=== PATIENT | female | born 1940 | race Caucasian/White ===

== ENCOUNTER → 2016-08-01 | Outpatient (CLI) | payer OTHER ==
[~2016-08-01] MED LIST: ASPEC81 PO; CHOL100010 PO; DEXT1SYP PO; INSUINJ13 SQ; LISI-725 PO; METO25TA56 PO; NVLGI7030 SC; PRAV40TA2 PO; TRIA37.5 PO; TRIA75TA53 PO
[2016-08-01 13:28] LABS: ESTIMATED AVERAGE GLUCOSE 160 mg/dl; HA1C FLAG Normal (Normal)
[2016-08-01 13:52] LABS: BLOOD UREA NITROGEN 26 mg/dl (7-18); BUN/CREATININE RATIO 19.7 (10-20); CALCIUM 9.2 mg/dl (8.5-10.1); CARBON DIOXIDE 25 mmol/L (21-32); CHLORIDE 107 mmol/L (98-107); GLUCOSE 106 mg/dl (70-99); POTASSIUM 3.9 mmol/L (3.5-5.1); SODIUM 143 mmol/L (136-145)
[2016-08-01 13:56] LABS: CHOLESTEROL 152 mg/dl (0-200); CHOLESTEROL/HDL RATIO 3.5; HDL CHOLESTEROL 43 mg/dl; TRIGLYCERIDES 152 mg/dl (0-150); VERY LOW DENSITY LIPOPROT CALC 30 mg/dl
== END | disposition home or self-care (01) ==
LOC: C.LABSPEC 12:07
PROVIDERS: ATTEND Internal Medicine
DX: Z00.00 Encounter for general adult medical examination without abnormal findings (principal); E11.65 Type 2 diabetes mellitus with hyperglycemia; I10 Essential (primary) hypertension; E78.5 Hyperlipidemia, unspecified

== ENCOUNTER → 2016-09-11 | Outpatient (CLI) | payer OTHER ==
[2016-09-11 12:54] LABS: BASO % 0.1 %; BASO ABS # 0.01 K/uL (0-0.2); COMPLETE YES; EOS % 0.7 %; HEMATOCRIT 40.2 % (37-47); IG% 0.2 %; LYMPH % 23.3 %; LYMPH ABS # 2.85 K/uL (1.2-3.4); MEAN CELL VOLUME 88.7 fL (80-100); MEAN CORPUSCULAR HGB CONC 31.6 g/dl (32-36); MONO % 6.8 %; NEUT % 68.9 %; PLATELET COUNT 352 K/uL (130-400); RED BLOOD COUNT 4.53 M/uL (4.2-5.4); WHITE BLOOD COUNT 12.25 K/uL (4.8-10.8)
[2016-09-11 13:24] LABS: BLOOD UREA NITROGEN 21 mg/dl (7-18); BUN/CREATININE RATIO 14.9 (10-20); CARBON DIOXIDE 23 mmol/L (21-32); CHLORIDE 106 mmol/L (98-107); GLUCOSE 131 mg/dl (70-99); MAGNESIUM 2.2 mg/dl (1.8-2.4); POTASSIUM 3.8 mmol/L (3.5-5.1); SODIUM 141 mmol/L (136-145)
[2016-09-11 13:33] LABS: CALCIUM 9.6 mg/dl (8.5-10.1)
== END | disposition home or self-care (01) ==
LOC: C.LABSPEC 12:19
PROVIDERS: ATTEND Internal Medicine
DX: R00.2 Palpitations (principal); R00.0 Tachycardia, unspecified

== ENCOUNTER → 2016-09-14 | Outpatient (CLI) | payer OTHER ==
--- NOTE | 2016-09-14 15:41 | ECHOCARDIOGRAM REPORT ---
*NOTICE TO RECEIVING [employer] This information is strictly Confidential and protected under [place] law. [place] law prohibits you from making any further disclosure of this information unless further disclosure is expressly permitted by the written consent of the person to whom it pertains or is authorized by law. A general authorization for the release of medical or other information is not sufficient for this purpose. Hospital accepts no responsibility if the information is made available to any other person, INCLUDING THE PATIENT. Interpretation Summary * Conclusions -- * 1. Normal left ventricular size and systolic function. EF 65-70%. No regional wall motion abnormalities. No left ventricular hypertrophy. Type 1 diastolic dysfunction. * 2. No significant valvular abnormalities visualized. * 3. Normal estimated right ventricular systolic pressure; 26 mmHg. * 4. No prior study available for comparison. Procedure Details * A complete two-dimensional transthoracic echocardiogram was performed (2D, M-mode, Doppler and color flow Doppler). Left Ventricle * Normal left ventricular size and systolic function. EF 65-70%. No regional wall motion abnormalities. No left ventricular hypertrophy. Type 1 diastolic dysfunction. Right Ventricle * The right ventricle is not well visualized. * The right ventricle is grossly normal size. * The right ventricular systolic function is normal as assessed by tricuspid annular plane systolic excursion (TAPSE) (normal >1.5 cm). * The right ventricular systolic function is normal. Atria * The left atrial size is normal. * Right atrial size is normal. * There is no evidence of atrial septal defect, but resolution does not allow assessment for a patent foramen ovale. Mitral Valve * There is moderate mitral annular calcification. * There is no mitral valve stenosis. * Significant mitral regurgitation is absent. Tricuspid Valve * The tricuspid valve is not well visualized, but is grossly normal. * There is no tricuspid stenosis. * There is trace tricuspid regurgitation. Aortic Valve * The aortic valve is trileaflet. * No hemodynamically significant valvular aortic stenosis. * No aortic regurgitation is present. Pulmonic Valve * The pulmonary valve is inadequately visualized, but the Doppler data is adequate for interpretation. * There is no pulmonic valvular stenosis. * There is no significant pulmonary regurgitation. Great Vessels * The aortic root is normal size. * Ascending aorta of normal dimension * Aortic arch of normal dimension. Pericardium/Pleural * There is no pericardial effusion. Great Vessels * Normal inferior vena cava size and collapsability with sniff indicates a normal right atrial pressure of 3 mmHg MMode 2D Measurements and Calculations IVSd 0.88 cm LVIDd 4.2 cm LVIDs 2.5 cm LVPWd 0.87 cm IVS/LVPW 1.0 FS 39.4 % EDV(Teich) 78.4 ml ESV(Teich) 23.3 ml EF(Teich) 70.3 % EDV(cubed) 73.9 ml ESV(cubed) 16.4 ml EF(cubed) 77.8 % LV mass(C)d 114.0 grams LV mass(C)dI 62.7 grams/m\S\2 SV(Teich) 55.1 ml SI(Teich) 30.3 ml/m\S\2 SV(cubed) 57.4 ml SI(cubed) 31.6 ml/m\S\2 Ao root diam 3.0 cm Ao root area 7.1 cm\S\2 ACS 1.8 cm LA dimension 3.0 cm asc Aorta Diam 2.9 cm LA/Ao 10 LVOT diam 2.0 cm LVOT area 3.0 cm\S\2 LVAd ap4 18.4 cm\S\2 LVLd ap4 6.8 cm EDV(MOD-sp4) 42.9 ml EDV(sp4-el) 42.0 ml LVAs ap4 8.8 cm\S\2 LVLs ap4 5.5 cm ESV(MOD-sp4) 12.5 ml ESV(sp4-el) 12.0 ml EF(MOD-sp4) 70.9 % EF(sp4-el) 71.5 % LVAd ap2 20.3 cm\S\2 LVLd ap2 6.8 cm EDV(MOD-sp2) 52.1 ml EDV(sp2-el) 51.7 ml LVAs ap2 10.5 cm\S\2 LVLs ap2 5.8 cm ESV(MOD-sp2) 16.7 ml ESV(sp2-el) 16.1 ml EF(MOD-sp2) 67.9 % EF(sp2-el) 68.8 % LVLd %diff -0.49 % EDV(MOD-bp) 47.5 ml LVLs %diff 5.1 % ESV(MOD-bp) 15.0 ml EF(MOD-bp) 68.5 % SV(MOD-sp4) 30.4 ml SI(MOD-sp4) 16.7 ml/m\S\2 SV(MOD-sp2) 35.4 ml SI(MOD-sp2) 19.5 ml/m\S\2 SV(MOD-bp) 32.5 ml SI(MOD-bp) 17.9 ml/m\S\2 SV(sp4-el) 30.0 ml SI(sp4-el) 16.5 ml/m\S\2 SV(sp2-el) 35.5 ml SI(sp2-el) 19.5 ml/m\S\2 Doppler Measurements and Calculations MV E max dmitry 96.6 cm/sec MV A max dmitry 108.7 cm/sec MV E/A 0.89 MV dec time 0.23 sec Ao V2 max 132.0 cm/sec Ao max PG 7.0 mmHg Ao max PG (full) 1.3 mmHg MEME(V,A) 2.8 cm\S\2 MEME(V,D) 2.8 cm\S\2 LV V1 max PG 5.7 mmHg LV V1 max 119.5 cm/sec TV E max dmitry 38.8 cm/sec PA V2 max 88.3 cm/sec PA max PG 3.1 mmHg PA acc slope 444.2 cm/sec\S\2 PA acc time 0.15 sec PI end-d dmitry 87.1 cm/sec TR max dmitry 239.8 cm/sec RVSP(TR) 26.0 mmHg RAP systole 3.0 mmHg PA pr(Accel) 13.4 mmHg
== END | disposition home or self-care (01) ==
LOC: C.CPL 13:07
PROVIDERS: ATTEND Internal Medicine
DX: R00.2 Palpitations (principal); R00.0 Tachycardia, unspecified

== ENCOUNTER 2016-12-17 13:46 | Emergency (ER) | payer OTHER ==
[~2016-12-17] VITALS: Ht 157.5 cm; Wt 82.3 kg
[~2016-12-17 13:46] MED LIST changes: -DEXT1SYP PO; -METO25TA56 PO; -TRIA37.5 PO
[2016-12-17 13:57] VITALS: TEMP 36.6; Ht 157.5 cm; Wt 82.3 kg
[2016-12-17] MEDS ORDERED: SODIUM CHLORIDE 0.9% 1000ML 1,000 ML IV STA (14:12)
--- NOTE | 2016-12-17 14:18 | EMERGENCY ROOM VISIT NOTE ---
History Report prepared by Edgar: Aidan Holland Under the Supervision of: Dr. Nathaniel Sen M.D. First contact with patient: 14:01 Chief Complaint: DIZZY Stated Complaint: LIGHTHEADED, SHAKEY History of Present Illness The patient is a 76 year old female who presents to the Emergency Room with complaints of intermittent dizziness beginning six days ago. She describes her dizziness as a feeling of "motion". She states that her symptoms began after standing. The patient also complains of a sore throat, runny nose and dry cough. She states that her symptoms resolved yesterday, but returned again today. She has a history of diabetes, and has not been eating a lot recently. The patient states that her blood sugars have been running high recently. She denies any nausea, vomiting, numbness, weakness, difficulty swallowing, fevers, urinary symptoms, abdominal pain, black or bloody stool, chest pain, or SOB. She had a normal echocardiogram in August 2016. The patient has a history of chronic tinnitus and has had problems with it for about 20 years. She denies any recent falls or trauma. She notes that she has a headache, but frequently has headaches due to sinus disease. Source of History: patient Onset: Six days ago Quality: other (dizziness) Timing: intermittent Associated Symptoms: + sorethroat, + cough (dry), No fevers, No chest pain, No SOB, No nausea, No vomiting, No abdominal pain, No melena, No hematochezia, No urinary symptoms Note: Additional symptoms: runny nose. Review of Systems See HPI for pertinent positives & negatives. A total of 10 systems reviewed and were otherwise negative. Past Medical & Surgical Medical Problems: (1) Closed fracture of left proximal humerus (2) Closed fracture of left proximal humerus (3) Closed fracture of left proximal humerus (4) Diabetes (5) Fall (6) Fall (7) Hyperlipemia (8) Hypertension (9) Proximal humerus fracture (10) Sinus disease Old medical records were reviewed. Nurse's notes were reviewed and I agree with. Family History No pertinent family history stated. Social History Smoking Status: Never Smoker Alcohol Use: none Housing Status: lives with family Current/Historical Medications Scheduled Insulin Aspart 70/30 (Novolog Mix 70/30), 45 UNITS SC QAM Insulin Aspart 70/30 (Novolog Mix 70/30), 25 UNITS SC QPM Lisinopril (Zestril), 10 MG PO DAILY Metoprolol Tartrate (Lopressor) (Lopressor), 25 MG PO BID Pravastatin Sodium (Pravastatin Sodium), 40 MG PO DAILY Triamterene/Hctz (Dyazide 37.5MG/25MG), 1 TAB PO DAILY Scheduled PRN Dextromethorphan-Guaifenesin (Robitussin Peak Cold Dm), 10 ML PO UD PRN for Cough Allergies Coded Allergies: Penicillins (Verified Allergy, Unknown, 12/17/16) Physical Exam Vital Signs Date Time Temp Pulse Resp B/P (MAP) Pulse Ox O2 Delivery O2 Flow Rate FiO2 12/17/16 15:53 67 18 136/65 99 12/17/16 15:10 81 16 155/70 86 155/66 80 147/70 12/17/16 14:29 68 12/17/16 13:57 36.6 68 18 145/71 98 Room Air Physical Exam General: Non-ill appearing older female in no acute distress. Normal speech. HEENT: Normal cephalic atraumatic. Pupils are equal round and reactive to light. Extraocular movements are intact. Oropharynx is pink with moist mucous membranes. No swelling of the mouth lips or tongue. Neck: Supple with a midline trachea. No meningeal signs or stiffness, no JVD or bruits. No Stridor. Chest: Clear to auscultation bilaterally. No wheezes or rhonchi. No increased work of breathing. Heart: regular rate and rhythm. Abdomen: Soft nontender, nondistended without rebound guarding or rigidity. Extremities: No cyanosis clubbing or edema. No calf tenderness or assymetry Spine/Back. Non tender to palpation. No CVA tenderness Skin: Good turgor without rashes. Neurologic exam: Cranial nerves two through 12 are intact. Motor and sensation are intact and symmetrical throughout. No tremor. Medical Decision & Procedures ER Provider Diagnostic Interpretation: Radiology results as stated below per my review and radiologist interpretation: HEAD WITHOUT CONTRAST (CT) FINDINGS: Ops Analyst topogram: Unremarkable. Proportional ventricular and sulcal prominence, likely age-related parenchymal volume loss. Periventricular and subcortical white matter hypoattenuation, nonspecific but likely indicative of chronic small vessel ischemic change. No mass effect or midline shift. No hemorrhage or acute territorial infarct. No extra-axial fluid collection. Minimal residual opacification of sphenoid sinuses with crenulated meniscus. Calvarium intact. IMPRESSION: 1. No acute intracranial pathology. 2. Chronic small vessel ischemic change. 3. Findings could suggest acute sinusitis of the sphenoid sinuses. Electronically signed by: Mj Adame M.D. 12/17/2016 3:01 PM CHEST ONE VIEW PORTABLE FINDINGS: Mildly prominent cardiac silhouette. Mild prominence of pulmonary vasculature. Lungs and pleural spaces clear. Degenerative changes of the thoracic spine. Abnormal appearance of the junction of the left humeral head and neck, compatible with old fracture deformity. Upper abdomen normal. IMPRESSION: 1. No acute cardiopulmonary disease. Electronically signed by: Mj Adame M.D. 12/17/2016 2:49 PM Laboratory Results 12/17/16 14:29 Red Blood Count 4.53, Mean Corpuscular Volume 89.8, Mean Corpuscular Hemoglobin 28.5, Mean Corpuscular Hemoglobin Concent 31.7, Mean Platelet Volume 10.2, Neutrophils (%) (Auto) 63.3, Lymphocytes (%) (Auto) 26.6, Monocytes (%) (Auto) 7.6, Eosinophils (%) (Auto) 2.2, Basophils (%) (Auto) 0.2, Neutrophils # (Auto) 5.54, Lymphocytes # (Auto) 2.33, Monocytes # (Auto) 0.67, Eosinophils # (Auto) 0.19, Basophils # (Auto) 0.02 12/17/16 14:29 Test 12/17/16 14:21 12/17/16 14:29 12/17/16 14:39 12/17/16 15:15 Bedside Glucose 185 mg/dl (70-90) White Blood Count 8.76 K/uL (4.8-10.8) Red Blood Count 4.53 M/uL (4.2-5.4) Hemoglobin 12.9 g/dL (12.0-16.0) Hematocrit 40.7 % (37-47) Mean Corpuscular Volume 89.8 fL (80-100) Mean Corpuscular Hemoglobin 28.5 pg (25-34) Mean Corpuscular Hemoglobin Concent 31.7 g/dl (32-36) Platelet Count 252 K/uL (130-400) Mean Platelet Volume 10.2 fL (7.4-10.4) Neutrophils (%) (Auto) 63.3 % Lymphocytes (%) (Auto) 26.6 % Monocytes (%) (Auto) 7.6 % Eosinophils (%) (Auto) 2.2 % Basophils (%) (Auto) 0.2 % Neutrophils # (Auto) 5.54 K/uL (1.4-6.5) Lymphocytes # (Auto) 2.33 K/uL (1.2-3.4) Monocytes # (Auto) 0.67 K/uL (0.11-0.59) Eosinophils # (Auto) 0.19 K/uL (0-0.5) Basophils # (Auto) 0.02 K/uL (0-0.2) RDW Standard Deviation 46.8 fL (36.4-46.3) RDW Coefficient of Variation 14.2 % (11.5-14.5) Immature Granulocyte % (Auto) 0.1 % Immature Granulocyte # (Auto) 0.01 K/uL (0.00-0.02) Anion Gap 11.0 mmol/L (3-11) Est Creatinine Clear Calc Drug Dose 40.9 ml/min Estimated GFR () 51.6 Estimated GFR (Non- 44.5 BUN/Creatinine Ratio 17.3 (10-20) Calcium Level 8.9 mg/dl (8.5-10.1) Total Bilirubin 0.3 mg/dl (0.2-1) Direct Bilirubin < 0.1 mg/dl (0-0.2) Aspartate Amino Transf (AST/SGOT) 13 U/L (15-37) Alanine Aminotransferase (ALT/SGPT) 16 U/L (12-78) Alkaline Phosphatase 90 U/L (45-117) Total Protein 6.6 gm/dl (6.4-8.2) Albumin 3.7 gm/dl (3.4-5.0) Lipase 128 U/L (73-393) Thyroid Stimulating Hormone (TSH) 0.754 uIu/ml (0.300-4.500) Bedside Troponin I < 0.030 ng/ml (0-0.045) Urine Color YELLOW Urine Appearance CLEAR (CLEAR) Urine pH 5.5 (4.5-7.5) Urine Specific [place] 1.009 (1.000-1.030) Urine Protein NEG (NEG) Urine Glucose (UA) NEG (NEG) Urine Ketones NEG (NEG) Urine Occult Blood NEG (NEG) Urine Nitrite NEG (NEG) Urine Bilirubin NEG (NEG) Urine Urobilinogen NEG (NEG) Urine Leukocyte Esterase LARGE (NEG) Urine WBC (Auto) >30 /hpf (0-5) Urine RBC (Auto) 0-4 /hpf (0-4) Urine Hyaline Casts (Auto) 0 /lpf (0-5) Urine Epithelial Cells (Auto) 5-10 /lpf (0-5) Urine Bacteria (Auto) 2+ (NEG) Laboratory studies as stated above per my review. Medications Administered Medications (Trade) Dose Ordered Sig/Suresh Route Start Time Stop Time Status Last Admin Dose Admin Sodium Chloride 1,000 ml @ 999 mls/hr Q1H1M STAT IV 12/17/16 14:12 12/17/16 15:12 DC 12/17/16 14:12 999 MLS/HR ECG Indication: other (dizziness) Rate (beats per minute): 72 Rhythm: normal sinus Findings: PAC (occasional), no acute ischemic change Comparison ECG Date: September 18, 2004 Change: PACs now present. ED Course 1403: Past medical records reviewed. The patient was evaluated in room C3, and a complete history and physical examination were performed. 1412: Ordered Sodium Chloride 1000 ml @ 999 mls/hr IV. 1500: I reassessed the patient. She is comfortable. 1530: Upon reevaluation, the patient is resting comfortably. I discussed the results and treatment plan with her. She has no urinary symptoms, and does not want to be on antibiotics. She verbalized agreement of the treatment plan. The patient was discharged home. Medical Decision Differentials include, but are not limited to; vertigo, arrhythmia, intracranial process, infection, diabetic complication, and electrolyte or metabolic abnormality. This patient comes in as described above she has a vague complaints of feeling dizzy. She looks well on exam at present has a normal neurologic exam. Her symptoms are positional, she does have chronic tinnitus and sinus issues. She' s had no chest pain or shortness of breath. She has normal stable vital signs. IV access established was hydrated 1 L IV normal saline bolus. Her symptoms are worse when she gets up so there could be an orthostatic component. I did order orthostatics. I did order CAT scan of her head as well as EKG chest x- ray multiple blood testing. We also obtained a blood sugar fingerstick. She was reassessed frequently. Her EKG does not appear ischemic or to suggest any significant arrhythmia. She has no elevation of troponin. She has no significant electrolyte or metabolic abnormalities. She has nothing to suggest infection or sepsis. CAT scan of her head was unremarkable, she may have some mild sinus disease. She says this is chronic. Her urinalysis and does suggest a possible UTI however she has no symptoms at all. This may be more it a chronic colonization. She does not want to be on antibiotics and that unless 100% necessary. Without the symptoms, I think we can wait on the culture and see how she does does on her symptoms. I recommended that she follow up with Dr. Kumari next 1-2 days and return to the ER if: worsening of symptoms, fever or chills, any new problems or concerns. Medication Reconcilliation Current Medication List: was personally reviewed by me Blood Pressure Screening Patient's blood pressure: Elevated blood pressure Blood pressure disposition: Referred to PCP Impression Primary Impression: Dizziness Scribe Attestation The scribe's documentation has been prepared under my direction and personally reviewed by me in its entirety. I confirm that the note above accurately reflects all work, treatment, procedures, and medical decision making performed by me. Departure Information Dispostion Home / Self-Care Referrals No Doctor, Assigned (PCP) Forms HOME CARE DOCUMENTATION FORM, IMPORTANT VISIT INFORMATION Patient Instructions My [facility] [place] [facility] Additional Instructions Rest. Drink plenty of fluids. Be careful when getting up and down. Return to the ER if: Fever, worsening of symptoms, chest pain, numbness or weakness, any new problems or concerns. Follow-up with your doctor this week for recheck
[2016-12-17 14:44] LABS: BASO % 0.2 %; BASO ABS # 0.02 K/uL (0-0.2); COMPLETE YES; EOS % 2.2 %; HEMATOCRIT 40.7 % (37-47); IG% 0.1 %; LYMPH % 26.6 %; LYMPH ABS # 2.33 K/uL (1.2-3.4); MEAN CELL VOLUME 89.8 fL (80-100); MEAN CORPUSCULAR HEMOGLOBIN 28.5 pg (25-34); MEAN CORPUSCULAR HGB CONC 31.7 g/dl (32-36); MEAN PLATELET VOLUME 10.2 fL (7.4-10.4); MONO % 7.6 %; NEUT % 63.3 %; PLATELET COUNT 252 K/uL (130-400); RED BLOOD COUNT 4.53 M/uL (4.2-5.4); WHITE BLOOD COUNT 8.76 K/uL (4.8-10.8)
--- NOTE | 2016-12-17 14:50 | DIAGNOSTIC IMAGING REPORT ---
CHEST ONE VIEW PORTABLE CLINICAL HISTORY: 76 years-old Female presenting with CHEST PAIN. TECHNIQUE: Portable upright AP view of the chest was obtained. COMPARISON: None. FINDINGS: Mildly prominent cardiac silhouette. Mild prominence of pulmonary vasculature. Lungs and pleural spaces clear. Degenerative changes of the thoracic spine. Abnormal appearance of the junction of the left humeral head and neck, compatible with old fracture deformity. Upper abdomen normal. IMPRESSION: 1. No acute cardiopulmonary disease. Electronically signed by: Mj Adame M.D. 12/17/2016 2:49 PM Dictated Date/Time: 12/17/2016 2:47 PM
[2016-12-17] MEDS ORDERED: TRIA37.5 PO (14:56)
[2016-12-17] MEDS ORDERED: NVLGI7030 SC (14:56)
[2016-12-17] MEDS ORDERED: DEXT1SYP PO (14:57)
[2016-12-17] MEDS ORDERED: METO25TA56 PO (14:57)
[2016-12-17 15:01] LABS: ALT/SGPT 16 U/L (12-78); BLOOD UREA NITROGEN 21 mg/dl (7-18); BUN/CREATININE RATIO 17.3 (10-20); CALCIUM 8.9 mg/dl (8.5-10.1); CARBON DIOXIDE 25 mmol/L (21-32); CHLORIDE 107 mmol/L (98-107); GLUCOSE 197 mg/dl (70-99); POTASSIUM 3.5 mmol/L (3.5-5.1); SODIUM 143 mmol/L (136-145)
--- NOTE | 2016-12-17 15:03 | DIAGNOSTIC IMAGING REPORT ---
HEAD WITHOUT CONTRAST (CT) CLINICAL HISTORY: 76 years-old Female presenting with weak and dizzy. TECHNIQUE: Multidetector CT imaging of the head was performed without the use of intravenous contrast. IV contrast: None. A dose lowering technique was used consistent with the principles of ALARA (as low as reasonably achievable). COMPARISON: 10/14/2013. CT DOSE (mGy.cm): The estimated cumulative dose is 537.48 mGy.cm. FINDINGS: Solution Strategist topogram: Unremarkable. Proportional ventricular and sulcal prominence, likely age-related parenchymal volume loss. Periventricular and subcortical white matter hypoattenuation, nonspecific but likely indicative of chronic small vessel ischemic change. No mass effect or midline shift. No hemorrhage or acute territorial infarct. No extra-axial fluid collection. Minimal residual opacification of sphenoid sinuses with crenulated meniscus. Calvarium intact. IMPRESSION: 1. No acute intracranial pathology. 2. Chronic small vessel ischemic change. 3. Findings could suggest acute sinusitis of the sphenoid sinuses. Electronically signed by: Mj Adame M.D. 12/17/2016 3:01 PM Dictated Date/Time: 12/17/2016 2:58 PM
[2016-12-17 15:12] LABS: ALKALINE PHOSPHATASE 90 U/L (45-117); AST/SGOT 13 U/L (15-37); THYROID STIMULATING HORMONE 0.754 uIu/ml (0.300-4.500)
[2016-12-17 15:26] LABS: URINE APPEARANCE CLEAR (CLEAR); URINE BILIRUBIN NEG (NEG); URINE COLOR YELLOW; URINE NITRITE NEG (NEG); URINE PH 5.5 (4.5-7.5); URINE SPECIFIC GRAVITY 1.009 (1.000-1.030); UROBILINOGEN NEG (NEG)
[2016-12-17 15:28] LABS: MANUAL MICROSCOPIC REQUIRED? NO; REVIEW REQ? NO
[2016-12-17 15:53] VITALS: BP 136/65; PULSE 67; O2SAT 99
== END 2016-12-17 15:55 | disposition home or self-care (01) ==
LOC: C.EDB 13:50 → C.EDC 15:55
DX: R42 Dizziness and giddiness (principal); E11.9 Type 2 diabetes mellitus without complications; E78.5 Hyperlipidemia, unspecified; I10 Essential (primary) hypertension; J32.9 Chronic sinusitis, unspecified; Z79.4 Long term (current) use of insulin; Z79.899 Other long term (current) drug therapy

== ENCOUNTER → 2016-12-19 | Outpatient (CLI) | payer OTHER ==
[~2016-12-19] MED LIST changes: -ASPEC81 PO; -CHOL100010 PO; +DEXT1SYP PO; -INSUINJ13 SQ; +METO25TA56 PO; +TRIA37.5 PO; -TRIA75TA53 PO
[2016-12-19 13:34] LABS: BLOOD UREA NITROGEN 22 mg/dl (7-18); BUN/CREATININE RATIO 19.8 (10-20); CALCIUM 9.2 mg/dl (8.5-10.1); CARBON DIOXIDE 26 mmol/L (21-32); CHLORIDE 108 mmol/L (98-107); CHOLESTEROL 147 mg/dl (0-200); GLUCOSE 104 mg/dl (70-99); POTASSIUM 3.7 mmol/L (3.5-5.1); SODIUM 142 mmol/L (136-145)
[2016-12-19 13:35] LABS: ESTIMATED AVERAGE GLUCOSE 154 mg/dl; HA1C FLAG Normal (Normal)
[2016-12-19 13:37] LABS: CHOLESTEROL/HDL RATIO 3.8; HDL CHOLESTEROL 39 mg/dl; TRIGLYCERIDES 124 mg/dl (0-150); VERY LOW DENSITY LIPOPROT CALC 25 mg/dl
== END | disposition home or self-care (01) ==
LOC: C.LABSPEC 12:15
PROVIDERS: ATTEND Internal Medicine
DX: E11.65 Type 2 diabetes mellitus with hyperglycemia (principal); I10 Essential (primary) hypertension; E78.5 Hyperlipidemia, unspecified

== ENCOUNTER → 2017-04-23 | Outpatient (CLI) | payer OTHER ==
[2017-04-23 13:16] LABS: HEMOGLOBIN A1C 7.1 % (4.5-5.6)
[2017-04-23 13:30] LABS: BLOOD UREA NITROGEN 23 mg/dl (7-18); CALCIUM 9.3 mg/dl (8.5-10.1); CARBON DIOXIDE 25 mmol/L (21-32); GLUCOSE 137 mg/dl (70-99); SODIUM 139 mmol/L (136-145)
[2017-04-23 13:36] LABS: CHOLESTEROL 172 mg/dl (0-200); LDL CHOLESTEROL (DIRECT) 110 mg/dl
== END | disposition home or self-care (01) ==
LOC: C.LABSPEC 12:31
PROVIDERS: ATTEND Internal Medicine
DX: E78.5 Hyperlipidemia, unspecified (principal); E11.9 Type 2 diabetes mellitus without complications; I10 Essential (primary) hypertension

== ENCOUNTER → 2017-04-27 | Outpatient (CLI) | payer OTHER ==
[2017-04-27 14:29] LABS: CREATININE RANDOM URINE 27.1 mg/dl
== END | disposition home or self-care (01) ==
LOC: C.LABSPEC 13:29
PROVIDERS: ATTEND Internal Medicine
DX: E11.9 Type 2 diabetes mellitus without complications (principal)

== ENCOUNTER → 2017-08-17 | Outpatient (CLI) | payer OTHER ==
[2017-08-17 14:19] LABS: BLOOD UREA NITROGEN 24 mg/dl (7-18); CALCIUM 9.1 mg/dl (8.5-10.1); CARBON DIOXIDE 27 mmol/L (21-32); CHOLESTEROL 155 mg/dl (0-200); GLUCOSE 144 mg/dl (70-99); HEMOGLOBIN A1C 7.8 % (4.5-5.6); LDL CHOLESTEROL (DIRECT) 93 mg/dl; POTASSIUM 4.2 mmol/L (3.5-5.1); SODIUM 142 mmol/L (136-145)
== END | disposition home or self-care (01) ==
LOC: C.LABSPEC 12:29
PROVIDERS: ATTEND Internal Medicine
DX: Z00.00 Encounter for general adult medical examination without abnormal findings (principal); E78.5 Hyperlipidemia, unspecified; E11.65 Type 2 diabetes mellitus with hyperglycemia; I10 Essential (primary) hypertension

== ENCOUNTER 2021-08-22 19:13 | Inpatient (IN) ==
[2021-08-22] MEDS ORDERED: SODIUM CHLORIDE 0.9% 1000ML 2,000 ML IV ONE (19:32)
[2021-08-22] MEDS ORDERED: METOCLOPRAMIDE HCL INJ 5 MG/ML 2 ML VIAL IV ONE (19:32)
[2021-08-22] MEDS ORDERED: ACETAMINOPHEN 1,000 MG/100 ML VIAL IV STA (19:32)
--- NOTE | 2021-08-22 19:37 | Emergency Department Note ---
Impression & Plan Acute appendicitis with localized peritonitis, Leukocytosis, Abdominal pain, Nausea ED Provider Note NAME: MATHIEU DOS SANTOS AGE: 81 SEX: F ARRIVES VIA: Walk-In INFORMANT: Patient ED PROVIDER(S): Eliseo Fernando MD CHIEF COMPLAINT: Abdominal pain PLAN: Disposition: Admit MEDICAL DECISION MAKING: The patient is a pleasant 81-year-old woman with a past medical history of diabetes, hypertension, hyperlipidemia who presents to the emergency department accompanied by her for evaluation of acute onset abdominal pain that happened just after eating lunch where she reports feeling severe onset of abdominal pain where she felt cold and chilled. The abdominal pain dissipated somewhat and she took a nap but the pain persisted. She reports that she has a sensation as though she needs to move her bowels but was unable to. She reports intermittent nausea but has not vomited. She reports she does have a history of constipation that she deals with regularly. She last moved her bowels yesterday and did have to strain. She cannot recall when she had had a bowel movement prior to that but thinks it may have been a couple days. She reports she has never had such severe pain related to her constipation. Otherwise she denies any objective fevers, chest pain, shortness of breath, urinary symptoms. She denies any prior history of abdominal surgeries. ON Arrival the patient is uncomfortable no acute distress, afebrile with heart in the 100s and blood pressure 90s/40s mentating normally improved with IVF hydration. She appears clinically dry. Her abdomen is mildly distended with generalized tenderness. There is no guarding or rebound. WBC 16, nonspecific. H/H and platelets within normal limits. Chemistry without metabolic acidosis. Electrolytes and LFTs without significant abnormality. Lipase is not elevated. UA appears contaminated with epithelial cells present however 2+ bacteria and WBCs. Nitrite is negative. CT of the abdomen pelvis was performed and demonstrates findings consistent with acute appendicitis with dilated appendix and michelle-appendiceal inflammation. Upon re-evalvuation the patient did develop more localized RLQ tenderness. BP improved with IVF hydration. Patient ordered for Cefoxitin. Case was reviewed with Spike Carranza, general surgery PAC with Dr. Chin, general surgery on-call. Case addit ionally was discussed with Dr. Santos, [facility] hospitalist, who will evaluate the patient for admission. Triage Nursing notes reviewed and agree them. Prior medical records reviewed Vital Signs: reviewed and remarkable for tachycardia, hypotension. Differential diagnosis: Gastroenteritis, food borne illness, infections, appendicitis, diverticulitis, inflammatory bowel disease, obstruction, GI bleed, biliary pathology, volvulus, as well as other pathologies. ER treatment provided: See below. Diagnostics interpreted by me: ECG: Sinus rhythm, 92 bpm, PACs, no overt ST elevation or depression. Cardiac Monitoring: An order for continuous cardiac monitoring was placed and demonstrated sinus tachycardia, 107 bpm, PACs Laboratory studies: See below Imaging studies: See below Consultation(s): Spike Carranza, general surgery PAC with Dr. Chin, [place] general surgery on-call. Dr. Santos, [facility] hospitalist. HPI: The patient is a pleasant 81-year-old woman with a past medical history of diabetes, hypertension, hyperlipidemia who presents to the emergency department accompanied by her for evaluation of acute onset abdominal pain that happened just after eating lunch where she reports feeling severe onset of abdominal pain where she felt cold and chilled. The abdominal pain dissipated somewhat and she took a nap but the pain persisted. She reports that she has a sensation as though she needs to move her bowels but was unable to. She reports intermittent nausea but has not vomited. She reports she does have a history of constipation that she deals with regularly. She last moved her bowels yesterday and did have to strain. She cannot recall when she had had a bowel movement prior to that but thinks it may have been a couple days. She reports she has never had such severe pain related to her constipation. Otherwise she denies any objective fevers, chest pain, shortness of breath, urinary symptoms. She denies any prior history of abdominal surgeries. ROS: See above HPI for pertinent positives & negatives. A total of 10 systems reviewed and were otherwise negative. VITALS:See Below PHYSICAL EXAMINATION: GENERAL: Awake, alert, uncomfortable-appearing, in no distress, BMI 32.8. HENT: Normocephalic, atraumatic. Oropharynx with dry mucous membranes and otherwise unremarkable. EYES: Normal conjunctiva. Sclera non-icteric. NECK: Supple. No nuchal rigidity. FROM. No JVD. RESPIRATORY: Clear to auscultation. CARDIAC: Tachycardic rate, normal rhythm. Extremities warm and well perfused. Pulses equal. ABDOMEN: Abdomen is mildly distended but soft with generalized tenderness later with more localized RLQ tenderness. There is no guarding or rebound. No masses. RECTAL: Deferred. MUSCULOSKELETAL: Chest examination reveals no tenderness. The back is symmetrical on inspection without obvious abnormality. There is no CVA tenderness to palpation. No joint edema. LOWER EXTREMITIES: Calves are equal size bilaterally and non-tender. No edema. No discoloration. NEURO: Normal sensorium. No sensory or motor deficits noted. SKIN: No rash or jaundice noted. Eliseo Fernando MD Past Med/Surg History Medical History (Updated 08/23/21 @ 18:20 by Eliseo Fernando MD) Hyperlipemia Hypertension Obesity Proximal humerus fracture Sinus disease Uncontrolled diabetes mellitus Family History Other Family history non-contributory Social History Smoking Status: Never smoker Second Hand Exposure: No; Do You Dip or Chew Tobacco: No; Tobacco Cessation Education Requested by Patient: No Hx Alcohol Use: No Hx Substance Use: No Preferred Language: Citizen Of [place] Communication Ability: Effective Area Field Person Required: No Beliefs That Will Affect Care: None marital status: Current Living Situation: Spouse How many Children do You have: 0 Other Information That Helps Us Care for You: No Feels Safe at Home: Yes Safety Concerns: Feels Safe At This Time Assistive Devices: Cane Assistive Devices Comment: motorized scooter Allergies Allergies Allergy/AdvReac Type Severity Reaction Status Date / Time Penicillins Allergy Unknown CAN'T Verified 08/22/21 20:28 REMEMBER Home Meds Home Medications Medication Instructions Recorded Confirmed aspirin 81 mg tablet,delayed 81 mg PO QAM 06/02/18 08/22/21 release (Aspirin Low Dose) lisinopril 10 mg tablet 10 mg PO QAM 06/02/18 08/22/21 metoprolol tartrate 25 mg tablet 25 mg PO BID 06/02/18 08/22/21 pravastatin 40 mg tablet 40 mg PO QAM 06/02/18 08/22/21 triamterene 37.5 1 tab PO QAM 06/02/18 08/22/21 mg-hydrochlorothiazide 25 mg tablet insulin glargine 100 unit/mL (3 15 unit SUBCUT QDD 03/09/19 08/22/21 mL) subcutaneous pen (Basaglar KwikPen U-100 Insulin) insulin glargine 100 unit/mL (3 50 unit SUBCUT QDL 03/09/19 08/22/21 mL) subcutaneous pen (Basaglar KwikPen U-100 Insulin) Previous Rx's Medication Instructions Recorded oxycodone 5 mg tablet 5 - 10 mg PO .[id number] PRN #15 tab 08/23/21 Results & Data (ED) Vital Signs Vital Signs - 24 hr 08/22/21 19:17 08/22/21 20:25 08/22/21 20:26 Temperature 36.4 C L Temperature Source Temporal Artery Scan Pulse Rate 107 H Pulse Rate [Apical] 96 H Respiratory Rate 20 17 17 Blood Pressure 90/40 L Blood Pressure [Left Arm] Blood Pressure Mean 56 Blood Pressure Mean [Left Arm] Blood Pressure Position Sitting Pulse Oximetry 96 97 97 Oxygen Delivery Method Room Air Room Air Room Air Sepsis Recent Fever Within 48 Hours No Sepsis New/Unexplained Change in Mental Status N/A Sepsis Action Taken by Nursing No Action Required 08/22/21 22:07 Temperature Temperature Source Pulse Rate Pulse Rate [Apical] 71 Respiratory Rate 16 Blood Pressure Blood Pressure [Left Arm] 167/80 H Blood Pressure Mean Blood Pressure Mean [Left Arm] 109 Blood Pressure Position Pulse Oximetry 96 Oxygen Delivery Method Sepsis Recent Fever Within 48 Hours Sepsis New/Unexplained Change in Mental Status Sepsis Action Taken by Nursing Laboratory Data Attestation: I reviewed the patient's lab results. Result diagrams: 08/23/21 06:15 08/23/21 06:15 Lab Results 08/22/21 08/22/21 08/22/21 Range/Units 19:10 19:10 19:40 WBC 16.06 H (4.8-10.8) K/uL RBC 4.84 (4.2-5.4) M/uL Hgb 14.4 (12.0-16.0) g/dL Hct 43.3 (37-47) % MCV 89.5 (80-100) fL MCH 29.8 (25-34) pg MCHC 33.3 (32-36) g/dL RDW Std Deviation 47.1 H (36.4-46.3) fL RDW Coeff of Mary Carmen 14.3 (11.5-14.5) % Plt Count 332 (130-400) K/uL MPV 10.5 H (7.4-10.4) fL Immature Gran % (Auto) 0.2 % Neut % (Auto) 79.9 % Lymph % (Auto) 13.9 % Hays % (Auto) 5.7 % Eos % (Auto) 0.2 % Baso % (Auto) 0.1 % Neut # (Auto) 12.82 H (1.4-6.5) K/uL Lymph # (Auto) 2.24 (1.2-3.4) K/uL Hays # (Auto) 0.91 H (0.11-0.59) K/uL Eos # (Auto) 0.04 (0-0.5) K/uL Baso # (Auto) 0.02 (0-0.2) K/uL Immature Gran # (Auto) 0.03 H (0.00-0.02) K/uL Sodium 138 (136-145) mmol/L Potassium 3.9 (3.5-5.1) mmol/L Chloride 102 (98-107) mmol/L Carbon Dioxide 25 (21-32) mmol/L Anion Gap 11 (3-11) BUN 26 H (6-23) mg/dl Creatinine 1.12 (0.6-1.2) mg/dl Est Cr Clr Drug Dosing 40.3 ml/min Est GFR ( Amer) 54.1 ml/min Est GFR (Non-Af Amer) 46.7 ml/min BUN/Creatinine Ratio 23.2 H (10-20) Glucose 181 H (70-99(Fasting)) mg/dl Calcium 10.0 (8.5-10.1) mg/dl Total Bilirubin 0.5 (0.2-1.0) mg/dl AST 11 L (13-39) U/L ALT 11 (7-52) U/L Alkaline Phosphatase 91 (34-104) U/L Total Protein 7.7 (6.0-8.3) gm/dl Albumin 4.3 (3.4-5.0) gm/dl Globulin 3.4 (2.5-4.0) gm/dl Albumin/Globulin Ratio 1.3 (0.9-2) Lipase 10 L (11-82) U/L Urine Color Yellow Urine Appearance Cloudy A (Clear) Urine pH 5.5 (4.5-7.5) Ur Specific Offerle 1.019 (1.000-1.030) Urine Protein Trace H (Negative) Urine Glucose (UA) Negative (Negative) Urine Ketones Negative (Negative) Urine Blood Negative (Negative) Urine Nitrite Negative (Negative) Urine Bilirubin Negative (Negative) Urine Urobilinogen Negative (Negative) Ur Leukocyte Esterase 2+ H (Negative) Urine WBC (Auto) >30 H (0-5) /hpf Urine RBC (Auto) 0-4 (0-4) /hpf U Hyaline Cast (Auto) 1-5 (0-5) /lpf U Epithel Cells (Auto) >30 H (0-5) /lpf Urine Bacteria (Auto) 2+ H (Negative) SARS-CoV-2, RNA, NAAT (NEGATIVE) 08/22/21 Range/Units 22:07 WBC (4.8-10.8) K/uL RBC (4.2-5.4) M/uL Hgb (12.0-16.0) g/dL Hct (37-47) % MCV (80-100) fL MCH (25-34) pg MCHC (32-36) g/dL RDW Std Deviation (36.4-46.3) fL RDW Coeff of Mary Carmen (11.5-14.5) % Plt Count (130-400) K/uL MPV (7.4-10.4) fL Immature Gran % (Auto) % Neut % (Auto) % Lymph % (Auto) % Hays % (Auto) % Eos % (Auto) % Baso % (Auto) % Neut # (Auto) (1.4-6.5) K/uL Lymph # (Auto) (1.2-3.4) K/uL Hays # (Auto) (0.11-0.59) K/uL Eos # (Auto) (0-0.5) K/uL Baso # (Auto) (0-0.2) K/uL Immature Gran # (Auto) (0.00-0.02) K/uL Sodium (136-145) mmol/L Potassium (3.5-5.1) mmol/L Chloride (98-107) mmol/L Carbon Dioxide (21-32) mmol/L Anion Gap (3-11) BUN (6-23) mg/dl Creatinine (0.6-1.2) mg/dl Est Cr Clr Drug Dosing ml/min Est GFR ( Amer) ml/min Est GFR (Non-Af Amer) ml/min BUN/Creatinine Ratio (10-20) Glucose (70-99(Fasting)) mg/dl Calcium (8.5-10.1) mg/dl Total Bilirubin (0.2-1.0) mg/dl AST (13-39) U/L ALT (7-52) U/L Alkaline Phosphatase (34-104) U/L Total Protein (6.0-8.3) gm/dl Albumin (3.4-5.0) gm/dl Globulin (2.5-4.0) gm/dl Albumin/Globulin Ratio (0.9-2) Lipase (11-82) U/L Urine Color Urine Appearance (Clear) Urine pH (4.5-7.5) Ur Specific [place] (1.000-1.030) Urine Protein (Negative) Urine Glucose (UA) (Negative) Urine Ketones (Negative) Urine Blood (Negative) Urine Nitrite (Negative) Urine Bilirubin (Negative) Urine Urobilinogen (Negative) Ur Leukocyte Esterase (Negative) Urine WBC (Auto) (0-5) /hpf Urine RBC (Auto) (0-4) /hpf U Hyaline Cast (Auto) (0-5) /lpf U Epithel Cells (Auto) (0-5) /lpf Urine Bacteria (Auto) (Negative) SARS-CoV-2, RNA, NAAT NEGATIVE (NEGATIVE) Administered Medications Cefoxitin Sodium 2,000 mg/ (Dextrose) 60 mls @ 120 mls/hr IV Q8H JESUS; Protocol Stop: 09/02/21 05:59 Last Infusion: 08/23/21 14:53 Dose: 0 mls/hr Documented by: [id number] Admin: 08/23/21 14:23 Dose: 120 mls/hr Documented by: [id number] Infusion: 08/23/21 06:34 Dose: 0 mls/hr Documented by: [id number] Admin: 08/23/21 05:59 Dose: 120 mls/hr Documented by: [id number] Lactated Ringer's (Lr) 1,000 mls @ 100 mls/hr IV .Q10H JESUS Stop: 09/22/21 11:47 Last Infusion: 05/24/22 13:17 Dose: 100 mls/hr Documented by: [id number] Admin: 08/23/21 13:00 Dose: 80 mls/hr Documented by: [id number] Insulin Aspart (Insulin Aspart Per Unit) 0 units SC ACHS JESUS Stop: 09/22/21 16:29 Last Admin: 08/23/21 17:54 Dose: 3 units Documented by: [id number] Cosigned by: [id number] Insulin Glargine (Insulin Glargine Solostar 100 Units/Ml 3 Ml Pen) 20 units SC BID JESUS Stop: 09/22/21 08:59 Last Admin: 08/23/21 12:03 Dose: Not Given Documented by: [id number] Discontinued Medications Bupivacaine HCl/Epinephrine Bitart (Bupivacaine/Epinephrine 0.25% 1:200,000 30 Ml Vial) Confirm Administered Dose 30 ml .ROUTE .STK-MED ONE Stop: 08/23/21 08:59 Last Admin: 08/23/21 10:20 Dose: 30 ml Documented by: [id number] Sodium Chloride (Nss 1000ml) 2,000 mls @ 999 mls/hr IV .Q2H1M ONE Stop: 08/22/21 21:32 Last Infusion: 08/22/21 19:48 Dose: 0 mls/hr Documented by: [id number] Admin: 08/22/21 19:41 Dose: 999 mls/hr Documented by: [id number] Acetaminophen (Ofirmev) 1,000 mg in 100 mls @ 400 mls/hr IV NOW STA Stop: 08/22/21 19:46 Last Infusion: 08/22/21 20:24 Dose: 0 mls/hr Documented by: [id number] Admin: 08/22/21 19:48 Dose: 400 mls/hr Documented by: [id number] Cefoxitin Sodium (Mefoxin) 2,000 mg in 60 mls @ 100 mls/hr IV NOW STA Stop: 08/22/21 22:03 Last Infusion: 08/22/21 22:31 Dose: 0 mls/hr Documented by: [id number] Admin: 08/22/21 21:53 Dose: 100 mls/hr Documented by: [id number] Lactated Ringer's (Lr) 1,000 mls @ 125 mls/hr IV .Q8H JESUS Stop: 09/22/21 00:01 Last Admin: 08/23/21 12:03 Dose: Not Given Documented by: [id number] Infusion: 08/23/21 12:02 Dose: 0 mls/hr Documented by: [id number] Infusion: 08/23/21 07:32 Dose: 0 mls/hr Documented by: [id number] Admin: 08/23/21 01:04 Dose: 125 mls/hr Documented by: [id number] Insulin Aspart (Insulin Aspart Per Unit) 0 units SC Q6 JESUS Stop: 09/22/21 07:29 Last Admin: 08/23/21 13:16 Dose: Not Given Documented by: [id number] Admin: 08/23/21 07:31 Dose: Not Given Documented by: [id number] Ioversol (Optiray 320 100ml) 90 ml IV ONCE ONE Stop: 08/22/21 20:52 Last Admin: 08/22/21 20:53 Dose: 90 ml Documented by: [id number] Metoclopramide HCl (Metoclopramide Hcl Inj 5 Mg/Ml 2 Ml Vial) 5 mg IV ONE ONE Stop: 08/22/21 19:33 Last Admin: 08/22/21 19:48 Dose: 5 mg Documented by: [id number] Imaging Data Radiologist's Impression: Chest X-Ray 08/22/21 22:19 XR chest 1V portable HISTORY: pre-op COMPARISON: Chest 03/19/2019. FINDINGS: No pneumothorax. No pleural effusions. The heart remains mildly enlarged. There is mild diffuse interstitial thickening, unchanged. No new focal lung consolidations to suggest pneumonia. Degenerative changes again noted within the shoulders. IMPRESSION: No change in the mild cardiomegaly and chronic interstitial thickening. ACT 112: Negative or not required by law. Electronically signed by: Saúl Mondragon M.D. 08/23/2021 7:54 AM Abdomen/Pelvis CT 08/22/21 20:14 CT OF THE ABDOMEN AND PELVIS WITH CONTRAST CLINICAL HISTORY: Abdominal pain, constipation, nausea. COMPARISON STUDY: None. TECHNIQUE: Following IV administration of 90 mL of Optiray, axial images of the abdomen and pelvis were obtained from the lung bases to the proximal femurs. Images were reviewed in the axial, sagittal, and coronal planes. IV contrast was administered without complication. Automated exposure control was utilized for the study. A dose lowering technique was utilized adhering to the principles of ALARA. CT DOSE: 590.95 mGy.cm FINDINGS: Lung bases are unremarkable. No pneumatosis, free air or portal venous gas is present. There are gallstones within the gallbladder. There is no eviden ce for acute cholecystitis. No biliary or pancreatic ductal dilatation is present. Fat-containing left adrenal nodule is benign. There is slight nodularity of the left adrenal gland. Spleen and pancreas are unremarkable. There is moderate bilateral renal cortical thinning. There are left-sided parap elvic cysts. Colonic diverticulosis is noted without evidence for acute diverticulitis. The appendix is dilated and fluid-filled, measuring 1 cm in caliber. There is periappendiceal fluid and stranding. No free air or abscess is present. No lymphadenopathy is identified. Right colon is mildly fluid-filled. A 2.9 cm heavily calcified left uterine fibroid is present. Small fat-containing umbilical hernia is incidentally noted. No acute fracture or suspicious lesion is identified within the visualized skeletal structures. IMPRESSION: 1. Findings consistent with acute appendicitis. Periappendiceal fluid and stranding. No abscess. No free air. 2. Cholelithiasis. No evidence for acute cholecystitis. 3. Colonic diverticulosis without evidence for acute diverticulitis. ACT 112: Negative or not required by law. Electronically signed by: Remy Egan M.D. 08/22/2021 9:21 PM Chest X-Ray 08/22/21 22:19 XR chest 1V portable HISTORY: pre-op COMPARISON: Chest 03/19/2019. FINDINGS: No pneumothorax. No pleural effusions. The heart remains mildly enlarged. There is mild diffuse interstitial thickening, unchanged. No new focal lung consolidations to suggest pneumonia. Degenerative changes again noted within the shoulders. IMPRESSION: No change in the mild cardiomegaly and chronic interstitial thickening. ACT 112: Negative or not required by law. Electronically signed by: Saúl Mondragon M.D. 08/23/2021 7:54 AM Discharge Plan Visit Data Chief Complaint: Abdominal Pain Stated Complaint: ABDOM PAIN ED Provider: Eliseo Fernando Discharge Problem: Acute appendicitis with localized peritonitis, Leukocytosis, Abdominal pain, Nausea Patient Disposition: Admitted As Inpatient Discharge Instructions Interventions: ED Discharge Assessment Last Done: 08/23/21 00:19 Discharge Problem: Acute appendicitis with localized peritonitis Qualifiers: Appendicitis gangrene presence: unspecified whether gangrene present Appendicitis perforation presence: without perforation Appendicitis abscess presence: without abscess Qualified Code(s): K35.30 - Acute appendicitis with localized peritonitis, without perforation or gangrene Leukocytosis Qualifiers: Leukocytosis type: unspecified Qualified Code(s): D72.829 - Elevated white blood cell count, unspecified Abdominal pain Qualifiers: Abdominal location: right lower quadrant Qualified Code(s): R10.31 - Right lower quadrant pain
[2021-08-22 19:53] LABS: Basophils # (auto) 0.02 K/uL (0-0.2); Basophils % (auto) 0.1 %; Eosinophils # (auto) 0.04 K/uL (0-0.5); Eosinophils % (auto) 0.2 %; Hematocrit (blood only) 43.3 % (37-47); Hemoglobin 14.4 g/dL (12.0-16.0); Immature Granulocytes # (auto) 0.03 K/uL (0.00-0.02); Immature Granulocytes % (auto) 0.2 %; Lymphocytes # (auto) 2.24 K/uL (1.2-3.4); Lymphocytes % (auto) 13.9 %; Mean Corpuscular Hemoglobin 29.8 pg (25-34); Mean Corpuscular Hgb Conc 33.3 g/dL (32-36); Mean Corpuscular Volume 89.5 fL (80-100); Mean Platelet Volume 10.5 fL (7.4-10.4); Monocytes # (auto) 0.91 K/uL (0.11-0.59); Monocytes % (auto) 5.7 %; Neutrophils # (auto) 12.82 K/uL (1.4-6.5); Neutrophils % (auto) 79.9 %; Platelet Count 332 K/uL (130-400); RDW Coefficient of Variation 14.3 % (11.5-14.5); RDW Standard Deviation 47.1 fL (36.4-46.3); Red Blood Count 4.84 M/uL (4.2-5.4); White Blood Count 16.06 K/uL (4.8-10.8)
[2021-08-22 20:13] LABS: Albumin Globulin Ratio 1.3 (0.9-2); Albumin Level 4.3 gm/dl (3.4-5.0); BUN Creatinine Ratio 23.2 (10-20); Bilirubin,Total 0.5 mg/dl (0.2-1.0); Creatinine Clr Calc Pharmacy 40.3 ml/min; Est GFR (African American) 54.1 ml/min; Est GFR (Non-African American) 46.7 ml/min; Globulin 3.4 gm/dl (2.5-4.0); Potassium 3.9 mmol/L (3.5-5.1); Total Protein 7.7 gm/dl (6.0-8.3)
[2021-08-22 20:45] LABS: Appearance Urine Cloudy (Clear); Bacteria Urine Automated 2+ (Negative); Bilirubin Urine Negative (Negative); Blood Urine Negative (Negative); Color Urine Yellow; Epithelial Cell Urine Auto >30 /lpf (0-5); Glucose Urine UA Negative (Negative); Ketones Urine Negative (Negative); Leukocyte Esterase Urine 2+ (Negative); Nitrite Urine Negative (Negative); Protein Urine Trace (Negative); RBC Urine Automated 0-4 /hpf (0-4); Specific Gravity Urine 1.019 (1.000-1.030); Urobilinogen Urine Negative (Negative); WBC Urine Automated >30 /hpf (0-5); pH Urine 5.5 (4.5-7.5)
[2021-08-22] MEDS ORDERED: OPTIRAY 320 100ml IV ONE (20:51)
--- NOTE | 2021-08-22 21:23 | CT Scan Report ---
CT OF THE ABDOMEN AND PELVIS WITH CONTRAST CLINICAL HISTORY: Abdominal pain, constipation, nausea. COMPARISON STUDY: None. TECHNIQUE: Following IV administration of 90 mL of Optiray, axial images of the abdomen and pelvis we re obtained from the lung bases to the proximal femurs. Images were reviewed in the axial, sagittal, and coronal planes. IV contrast was administered without complication. Automated exposure control wa s utilized for the study. A dose lowering technique was utilized adhering to the principles of ALARA . CT DOSE: 590.95 mGy.cm FINDINGS: Lung bases are unremarkable. No pneumatosis, free air or portal venous gas is present. Ther e are gallstones within the gallbladder. There is no evidence for acute cholecystitis. No biliary or pancreatic ductal dilatation is present. Fat-containing left adrenal nodule is benign. There is sligh t nodularity of the left adrenal gland. Spleen and pancreas are unremarkable. There is moderate bilat eral renal cortical thinning. There are left-sided parapelvic cysts. Colonic diverticulosis is noted without evidence for acute diverticulitis. The appendix is dilated and fluid-filled, measuring 1 cm i n caliber. There is periappendiceal fluid and stranding. No free air or abscess is present. No lympha denopathy is identified. Right colon is mildly fluid-filled. A 2.9 cm heavily calcified left uterine fibroid is present. Small fat-containing umbilical hernia is incidentally noted. No acute fracture or suspicious lesion is identified within the visualized skeletal structures. IMPRESSION: 1. Findings consistent with acute appendicitis. Periappendiceal fluid and stranding. No abscess. No f ree air. 2. Cholelithiasis. No evidence for acute cholecystitis. 3. Colonic diverticulosis without evidence for acute diverticulitis. ACT 112: Negative or not required by law. Electronically signed by: Remy Egan M.D. 08/22/2021 9:21 PM
[2021-08-22] MEDS ORDERED: cefOXitin 2,000 MG/60 ML BAG IV STA (21:28)
--- NOTE | 2021-08-22 22:24 | Surgery Consultation ---
Date of Consultation August 22, 2021 Assessment & Plan (1) Acute appendicitis: Due to the patient's clinical presentation, labs, and imaging she will be admitted to the hospital. I have discussed with the hospitalist team and due to the patient's other underlying medical issues which include but are not limited to diabetes and hypertension she will be admitted to the hospital service. We recommend proceeding as follows: Implement n.p.o. status Provide analgesics Provide antiemetics Initiate antibiotics. The treating emergency room physician has ordered cefoxitin and she is receiving her first dose of this. This medicine should continue Provide hydration measures with IV fluids Patient has been scheduled for laparoscopic, possible open appendectomy with Dr. Lemuel Chin for the morning of 08/23/2021. I discussed the procedure with the patient and she wishes to proceed. Patient's other underlying medical issues will be managed by the hospitalist team Recommend utilizing SCDs for DVT prevention. Would avoid chemical means due to planned surgery Additional recommendations be forthcoming based on patient's clinical course as it unfolds as well as her operative findings and postoperative recovery. Supervising Physician Co-Signing Physician Notes I personally saw and evaluated the patient with Santosh Carranza PA-C and agree with the assessment and plan. 81-year-old female with acute appendicitis She is being admitted by the hospitalist service CT images and results personally viewed by me, consistent with acute appendicitis without abscess or perforation Keep n.p.o. give IV antibiotics We will plan on laparoscopic possible open appendectomy tomorrow History of Present Illness Reason for Consultation: Acute appendicitis History of Present Illness This is a 81-year-old female who presented to [facility] emergency department secondary to abdominal pain. Patient notes that the pain is confined to the right side of her abdomen and began this afternoon shortly after eating lunch. Patient notes that she was in her usual state of health prior to this and was feeling fine yesterday. She did have some chills and felt cold but she did not have any fever. She did not have any nausea or vomiting. She notes that the pain is improved when she lies still and she noted that the pain was worse on the drive into the hospital. She denies having any prior abdominal surgeries. She notes that her last oral intake was at approximate 12 :00 PM this afternoon. In the emergency department the patient had labs and imaging which I independently reviewed. CBC revealed white blood cell count was elevated at 16.0. Hemoglobin, hematocrit, and platelet count were normal. Chemistry profile showed sodium, potassium, and creatinine were normal. Her BUN had a slight elevation at 26. There is no elevation of patient's LFTs or lipase. Ur inalysis did show greater than 30 white blood cells per high-power field along with 2+ bacteria. A COVID test is pending. Patient did undergo a CT scan of the abdomen and pelvis that showed findings concerning for acute appendicitis. The appendix was noted to be dilated and fluid-filled measuring approximately 1 cm in diameter. There is periappendiceal fluid and stranding. There is no evidence of free air, abscess, or perforation. At the time of my interview the patient was resting comfortably in bed and she was in no distress. Allergies Allergy/AdvReac Type Severity Reaction Status Date / Time Penicillins Allergy Unknown CAN'T Verified 08/22/21 20:28 REMEMBER Home Medications Medication Instructions Recorded Confirmed Type aspirin 81 mg tablet,delayed 81 mg PO QAM 06/02/18 08/22/21 History release (Aspirin Low Dose) lisinopril 10 mg tablet 10 mg PO QAM 06/02/18 08/22/21 History metoprolol tartrate 25 mg tablet 25 mg PO BID 06/02/18 08/22/21 History pravastatin 40 mg tablet 40 mg PO QAM 06/02/18 08/22/21 History triamterene 37.5 1 tab PO QAM 06/02/18 08/22/21 History mg-hydrochlorothiazide 25 mg tablet insulin glargine 100 unit/mL (3 15 unit SUBCUT QDD 03/09/19 08/22/21 History mL) subcutaneous pen (Basaglar KwikPen U-100 Insulin) insulin glargine 100 unit/mL (3 50 unit SUBCUT QDL 03/09/19 08/22/21 History mL) subcutaneous pen (Basaglar KwikPen U-100 Insulin) Patient History Medical History (Updated 08/23/21 @ 07:31 by Saúl Frost MD) Hyperlipemia Hypertension Obesity Proximal humerus fracture Sinus disease Uncontrolled diabetes mellitus Family History Other Family history non-contributory Social History Smoking Status: Never smoker Second Hand Exposure: No; Do You Dip or Chew Tobacco: No; Tobacco Cessation Education Requested by Patient: No Hx Alcohol Use: No Hx Substance Use: No Preferred Language: Yi Human Resources Administrator Required: No Beliefs That Will Affect Care: None Current Living Situation: Spouse Other Information That Helps Us Care for You: No Feels Safe at Home: Yes Safety Concerns: Feels Safe At This Time Assistive Devices: Cane, Denture - Upper and Denture - Lower Review of Systems Constitutional: + chills; no fever Eyes: no eye pain Ear, Nose, Mouth, Throat: no ear pain Respiratory: no cough and no dyspnea Cardiovascular: no chest pain Gastrointestinal: + abdominal pain; no nausea and no vomiting Genitourinary: no dysuria Musculoskeletal: no back pain Integumentary: no rash Neurologic: no localized weakness Physical Exam Constitutional: well developed and well nourished; no acute distress Eyes: no conjunctival abnormality ENMT: Ears: no hearing impairment and no external ear abnormality Mouth: no oropharynx abnormality Neck: trachea midline Respiratory: normal respiratory effort, lungs clear to auscultation Cardiovascular: Rate/Rhythm: regular rate and regular rhythm Gastrointestinal (Abdomen): Patient's abdomen is rotund. Her abdomen is nonrigid. Bowel sounds are hypoactive. There is no rebound tenderness or guarding. Patient did have pain with palpation in the right lower quadrant over McBurney's point. Rovsing sign was noted to be positive. Musculoskeletal: No calf tenderness Skin: no rashes Neurologic: moves all extremities Psychiatric: A+Ox3, euthymic affect Results & Data ([facility]) Vital Signs (Past 12 Hours) Vital Signs Temp Pulse Pulse Resp BP BP Pulse Ox 08/22/21 22:07 71 16 167/80 H 96 08/22/21 20:26 96 H 17 97 08/22/21 20:25 17 97 08/22/21 19:17 36.4 C L 107 H 20 90/40 L 96 PG Care Time/CCT Total # of Minutes Spent Total Time Spent with Patient: Total time spent is greater than 50% in coordination of care (as documented) at patient's floor/unit and/or counseling patient: Coding Level of Care Code 67005 Inpt Consult Level 5 Diagnoses Acute appendicitis K35.80
--- NOTE | 2021-08-22 23:38 | History & Physical Report ---
Date of Service August 22, 2021 Assessment & Plan (1) Acute appendicitis: Plan: Yeni Heath is a 81yo female with PMHx significant for insulin-dependent DM (A1c 8.9 on 05/09/2021), HTN and HLD who presented to [facility] ED on 08/22 for acute- onset abdominal pain - found to have acute appendicitis. Acute Appendicitis Typical/acute-onset symptoms with diagnosis per CT A/P. - Surgery consulted - planning for laparoscopic vs open appendectomy in the AM - NPO for upcoming procedure - received Cefoxitin 2g IV at 2000, will continue with Q6H dosing with next dose at 0400 - graduated pain regimen: Tylenol 1g IV Q8H; Dilaudid 0.25mg IV Q6H - s/p 1L NSS bolus - continue with LR @ 125cc/hr - trend CBC in AM Chronic Medical Conditions Insulin-dependent DM: will repeat A1c in AM. Initiate SSI as well as decreased glargine dosing at 20 units BID (usually gets 50 units after lunch and 15 units before bed) given NPO status HTN: hold home anti-hypertensives. PRN Lopressor 5mg IV for SBP >180 HLD: hold home statin and hold Aspirin FEN/GI: NPO, LR @125cc/hr DVT Prophylaxis: SCDs; hold chemoppx given upcoming surgery Code Status: full code Disposition: med/surg (2) Hypertension: (3) Hyperlipemia: (4) Diabetes: History of Present Illness Chief Complaint: abdominal pain Primary Care Provider: NO PCP Yeni Heath is a 81yo female with PMHx significant for insulin-dependent DM (A1c 8.9 on 05/09/2021), HTN and HLD who presented to [facility] ED on 08/22 for acute-onset/worsening RLQ abdominal pain x10 hours, with associated subjective fever/chills. In the ED the patient was afebrile, mildly tachycardic and mildly hypertensive. Lab work-up showed WBC 16.06 with neutrophilic predominance and mild L shift, BUN 26/Cr 1.12, Lipase WNL. UA cloudy with 2+ LE/WBC>30/Bacteria2+/Epith cells >30. CT A/P with acute appendicitis, without abscess or free air. Patient was given Tylenol 1g IV x1 which helped significantly with pain. Was also given Reglan 5mg IV x1 for nausea, NSS 1L bolus, and Cefoxitin 2g IV x1 @1999. General surgery consulted with plans for lap vs open appy in the AM. Allergies Allergy/AdvReac Type Severity Reaction Status Date / Time Penicillins Allergy Unknown CAN'T Verified 08/22/21 20:28 REMEMBER Home Medications Medication Instructions Recorded Confirmed Type aspirin 81 mg tablet,delayed 81 mg PO QAM 06/02/18 08/22/21 History release (Aspirin Low Dose) lisinopril 10 mg tablet 10 mg PO QAM 06/02/18 08/22/21 History metoprolol tartrate 25 mg tablet 25 mg PO BID 06/02/18 08/22/21 History pravastatin 40 mg tablet 40 mg PO QAM 06/02/18 08/22/21 History triamterene 37.5 1 tab PO QAM 06/02/18 08/22/21 History mg-hydrochlorothiazide 25 mg tablet insulin glargine 100 unit/mL (3 15 unit SUBCUT QDD 03/09/19 08/22/21 History mL) subcutaneous pen (Basaglar KwikPen U-100 Insulin) insulin glargine 100 unit/mL (3 50 unit SUBCUT QDL 03/09/19 08/22/21 History mL) subcutaneous pen (Basaglar KwikPen U-100 Insulin) oxycodone 5 mg tablet 5 - 10 mg PO .[id number] PRN #15 tab 08/23/21 Rx Past Med/Surg History Medical History (Updated 08/23/21 @ 18:20 by Eliseo Fernando MD) Hyperlipemia Hypertension Obesity Proximal humerus fracture Sinus disease Uncontrolled diabetes mellitus Family History Other Family history non-contributory Social History Smoking Status: Never smoker Second Hand Exposure: No; Do You Dip or Chew Tobacco: No; Tobacco Cessation Education Requested by Patient: No Hx Alcohol Use: No Hx Substance Use: No Preferred Language: Uzbek Communication Ability: Effective Livestock Counter Required: No Beliefs That Will Affect Care: None marital status: Current Living Situation: Spouse How many Children do You have: 0 Other Information That Helps Us Care for You: No Feels Safe at Home: Yes Safety Concerns: Feels Safe At This Time Assistive Devices: Cane Assistive Devices Comment: motorized scooter Review of Systems Review of Systems: All systems reviewed & are unremarkable except as noted in HPI & below Physical Exam Physical Exam: General: A&Ox3. NAD. Cooperative. HEENT: Atraumatic, normocephalic. Pulm: CTAB A&P. -wheezes, -rales, -rhonchi. Symmetrical chest rise. No increase work of breathing. No respiratory distress. Cardiac: RRR, -mrg. Radial pulses intact and symmetrical. Abdominal: soft, non-distended, mild tenderness at McBurney's point without rebound or guarding, negative Rovsing, BS x 4 Skin: warm, dry, no rash Results & Data Results & Data ([facility]) Vital Signs (Past 12 Hours) Vital Signs Temp Pulse Pulse Resp BP BP Pulse Ox 08/22/21 22:07 71 16 167/80 H 96 08/22/21 20:26 96 H 17 97 08/22/21 20:25 17 97 08/22/21 19:17 36.4 C L 107 H 20 90/40 L 96 Code Status & VTE Plan Code Status full code - discussed with patient VTE Prophylaxis Plan VTE Prophylaxis will be ordered: Yes Supervising Physician Co-Signing Physician Notes Attending addendum: I have physically seen this patient, have supervised the medical residents activities, and agree with the H&P unless as otherwise noted. Assessment and Plan: Acute appendicitis- NPO Continuous cefoxitin begun in ED Tylenol 1 g IV every 8 hours as needed mild pain or fever Dilaudid 0.25 mg IV every 3 hours as needed moderate to severe pain Status post 1 L normal saline in ED LR at high 25 MLS per hour Follow serial laboratories Consult general surgery Diabetes mellitus- Placed on Accu-Cheks before meals and at bedtime with NovoLog coverage per scale Remaining orders and notations as noted Resident Activity Tracking Resident Involvement: Resident Care Provided Care Provided: Adult Hospital Medicine
[2021-08-23] MEDS ORDERED: ACETAMINOPHEN 1000 MG/100 ML IV IV PRN
[2021-08-23] MEDS ORDERED: HYDROmorphone INJ 0.5 MG/0.5 ML SYR IV PRN (00:52)
[2021-08-23] MEDS ORDERED: GLUCOSE 40% GEL 15 GM TUBE PO PRN (00:52)
[2021-08-23] MEDS ORDERED: DEXTROSE 50% 50 ML SYRINGE IV PRN (00:52)
[2021-08-23] MEDS ORDERED: CARBOHYDRATES FOR HYPOGLYCEMIA PO PRN (00:52)
[2021-08-23] MEDS ORDERED: GLUCAGON FOR INJ 1 MG VIAL SQ PRN (00:52)
[2021-08-23] MEDS ORDERED: METOPROLOL TARTRATE 1 MG/ML VIAL IV PRN (00:52)
[2021-08-23] MEDS ORDERED: GLUCOSE 10 TABS/TUBE PO PRN (00:52)
[2021-08-23] MEDS: LACTATED RINGER'S 1,000 ML IV SCH ×3 (01:04→13:00)
[2021-08-23] MEDS ORDERED: cefOXitin 2,000 MG/60 ML BAG IV SCH (04:00)
[2021-08-23] MEDS: cefOXitin 2,000 MG in DEXTROSE 5% 50 ML IV SCH ×3 (05:59→21:50)
[2021-08-23 06:49] LABS: Basophils # (auto) 0.01 K/uL (0-0.2); Basophils % (auto) 0.1 %; Hematocrit (blood only) 34.8 % (37-47); Hemoglobin 11.5 g/dL (12.0-16.0); Immature Granulocytes # (auto) 0.04 K/uL (0.00-0.02); Immature Granulocytes % (auto) 0.2 %; Lymphocytes # (auto) 2.32 K/uL (1.2-3.4); Lymphocytes % (auto) 12.9 %; Mean Corpuscular Hemoglobin 29.6 pg (25-34); Mean Corpuscular Volume 89.7 fL (80-100); Mean Platelet Volume 10.1 fL (7.4-10.4); Monocytes # (auto) 0.74 K/uL (0.11-0.59); Monocytes % (auto) 4.1 %; Neutrophils # (auto) 14.82 K/uL (1.4-6.5); Neutrophils % (auto) 82.7 %; Platelet Count 289 K/uL (130-400); RDW Coefficient of Variation 14.4 % (11.5-14.5); Red Blood Count 3.88 M/uL (4.2-5.4); White Blood Count 17.93 K/uL (4.8-10.8)
[2021-08-23 06:56] LABS: BUN Creatinine Ratio 18.1 (10-20); Calcium 8.3 mg/dl (8.5-10.1); Creatinine Clr Calc Pharmacy 43.3 ml/min; Est GFR (African American) 58.5 ml/min; Est GFR (Non-African American) 50.5 ml/min; Magnesium 1.7 mg/dl (1.7-2.4); Potassium 3.8 mmol/L (3.5-5.1)
--- NOTE | 2021-08-23 06:58 | Anesthesiology Consultation ---
Date of Service August 23, 2021 Assessment & Plan (1) Encounter for pre-operative examination: Chart Review Chart Review: entry level receptionist initiated History Surgery Operation Date: 08/23/21 07:00 Proposed Procedures p Laparoscopic Appendectomy - Lemuel Chin DO Height/Weight Height: 5 ft 2 in Weight: 82.7 kg Allergies Allergy/AdvReac Type Severity Reaction Status Date / Time Penicillins Allergy Unknown CAN'T Verified 08/22/21 20:28 REMEMBER Medications Home Medications Medication Instructions Recorded Confirmed Last Taken aspirin 81 mg tablet,delayed 81 mg PO QAM 06/02/18 08/22/21 08/22/21 release (Aspirin Low Dose) lisinopril 10 mg tablet 10 mg PO QAM 06/02/18 08/22/21 08/22/21 metoprolol tartrate 25 mg tablet 25 mg PO BID 06/02/18 08/22/21 08/22/21 08:00 pravastatin 40 mg tablet 40 mg PO QAM 06/02/18 08/22/21 08/22/21 triamterene 37.5 1 tab PO QAM 06/02/18 08/22/21 08/22/21 mg-hydrochlorothiazide 25 mg tablet insulin glargine 100 unit/mL (3 15 unit SUBCUT QDD 03/09/19 08/22/21 08/21/21 mL) subcutaneous pen (Basaglar KwikPen U-100 Insulin) insulin glargine 100 unit/mL (3 50 unit SUBCUT QDL 03/09/19 08/22/21 08/22/21 mL) subcutaneous pen (Basaglar KwikPen U-100 Insulin) Active Medications Generic Name Dose Route Start Last Admin Trade Name Freq PRN Reason Stop Dose Admin Lactated Ringer's 1,000 mls @ 125 mls/hr 08/23/21 00:02 08/23/21 01:04 Lr IV 09/22/21 00:01 125 mls/hr .Q8H JESUS Administration Cefoxitin Sodium 2,000 mg/ 60 mls @ 120 mls/hr 08/23/21 06:00 08/23/21 06:34 Dextrose IV 09/02/21 05:59 Infused Q8H JESUS Infusion Protocol Past Medical History Medical History (Updated 08/23/21 @ 06:59 by Leobardo T Wyatt, DO) Closed fracture of left proximal humerus Closed fracture of left proximal humerus Closed fracture of left proximal humerus Diabetes Hyperlipemia Hypertension Proximal humerus fracture Sinus disease Past Family History Family History Other Family history non-contributory Social History Smoking Status: Never smoker Do You Dip or Chew Tobacco: No Hx Alcohol Use: No Hx Substance Use: No Physical Exam Vital Signs Last Vital Signs Temp 99.0 F 08/23/21 06:21 Pulse 85 08/23/21 06:21 Resp 16 08/23/21 06:21 BP 118/65 08/23/21 06:21 Pulse Ox 93 08/23/21 06:21 Testing Laboratory Results 08/23/21 06:15 Urine Color Yellow 08/22/21 19:40 Urine Appearance Cloudy (Clear) A 08/22/21 19:40 Urine pH 5.5 (4.5-7.5) 08/22/21 19:40 Ur Specific [place] 1.019 (1.000-1.030) 08/22/21 19:40 Urine Protein Trace (Negative) H 08/22/21 19:40 Urine Glucose (UA) Negative (Negative) 08/22/21 19:40 Urine Ketones Negative (Negative) 08/22/21 19:40 Urine Nitrite Negative (Negative) 08/22/21 19:40 Ur Leukocyte Esterase 2+ (Negative) H 08/22/21 19:40 Urine WBC (Auto) >30 /hpf (0-5) H 08/22/21 19:40 Urine RBC (Auto) 0-4 /hpf (0-4) 08/22/21 19:40 U Hyaline Cast (Auto) 1-5 /lpf (0-5) 08/22/21 19:40 U Epithel Cells (Auto) >30 /lpf (0-5) H 08/22/21 19:40 Urine Bacteria (Auto) 2+ (Negative) H 08/22/21 19:40 Laboratory Tests 08/22/21 22:07 SARS-CoV-2, RNA, NAAT NEGATIVE Electrocardiogram Sinus rhythm with Premature atrial complexes, rate 92 bpm Low voltage QRS Septal infarct , age undetermined Abnormal ECG When compared with ECG of 09-MAR-2019 10:23, Septal infarct is now Present
[2021-08-23 07:07] LABS: Estimated Average Glucose 223 mg/dl; Hemoglobin A1C 9.4 % (4.5-5.6)
[2021-08-23] MEDS ORDERED: Nursing to Pharmacy Communication SCH ×2 (07:15→16:15)
[2021-08-23] MEDS ORDERED: INSULIN ASPART PER UNIT SC SCH (07:30)
[2021-08-23] MEDS: INSULIN ASPART PER UNIT SC SCH ×4 (07:31→21:27)
--- NOTE | 2021-08-23 07:56 | XRay Report ---
XR chest 1V portable HISTORY: pre-op COMPARISON: Chest 03/19/2019. FINDINGS: No pneumothorax. No pleural effusions. The heart remains mildly enlarged. There is mild dif fuse interstitial thickening, unchanged. No new focal lung consolidations to suggest pneumonia. Degen erative changes again noted within the shoulders. IMPRESSION: No change in the mild cardiomegaly and chronic interstitial thickening. ACT 112: Negative or not required by law. Electronically signed by: Saúl Mondragon M.D. 08/23/2021 7:54 AM
[2021-08-23] MEDS ORDERED: PROPOFOL IV EMULSION 10 MG/ML 20 ML VIAL IV ONE (08:15)
[2021-08-23] MEDS ORDERED: ROCURONIUM BROMIDE 10 MG/ML 5 ML VIAL IV ONE (08:15)
[2021-08-23] MEDS ORDERED: LIDOCAINE 2% 2 ML VIAL/AMP(20MG/ML) INFIL ONE (08:15)
[2021-08-23] MEDS ORDERED: ONDANSETRON INJ 2 MG/ML 2 ML VIAL IV PRN (08:16)
[2021-08-23] MEDS ORDERED: HYDROmorphone INJ 1 MG/ML SYRINGE IV PRN (08:16)
[2021-08-23] MEDS ORDERED: LABETALOL HCL IV 5 MG/ML 20ML IV PRN (08:16)
[2021-08-23] MEDS ORDERED: ePHEDrine sulfate 50 MG/ML AMP IV PRN (08:16)
[2021-08-23] MEDS ORDERED: PHENYLEPHRINE 100MCG/ML 5ML SYR IV PRN (08:16)
[2021-08-23] MEDS ORDERED: fentaNYL citrate 100 MCG/2 ML VIAL ONE (08:16)
[2021-08-23] MEDS ORDERED: ATROPINE SULFATE 0.1 MG/ML 10ML SYR IV PRN (08:16)
[2021-08-23] MEDS ORDERED: MEPERIDINE HCL 25 MG/ML CARP/VIAL IV PRN (08:16)
[2021-08-23] MEDS ORDERED: MIDAZOLAM HCL 1 MG/ML 2ML VIAL ONE (08:16)
[2021-08-23] MEDS ORDERED: fentaNYL citrate 100 MCG/2 ML VIAL IV PRN (08:16)
--- NOTE | 2021-08-23 08:46 | Surgery Progress Note ---
Date of Service August 23, 2021 Assessment & Plan (1) Acute appendicitis: Plan: To OR today for laparoscopic appendectomy, possible open Consent was obtained, risks discussed including bleeding, infection, leak, abscess Admission and Anticipated Discharge Date Admission Date: August 22, 2021 Subjective Patient seen and examined. Has minimal abdominal pain. Afebrile. No acute events overnight. Review of Systems Constitutional: no fever and no chills Physical Exam Constitutional: WD/WN, vitals as above Gastrointestinal (Abdomen): Inspection/Auscultation: abdomen normal to inspection; abdomen not distended Percussion/Palpation: + abdomen tender (Right lower quadrant), + guarding and abdomen soft; abdomen not rigid Results & Data ([facility]) Vital Signs (Past 12 Hours) Vital Signs Temp Pulse Pulse Pulse Resp BP Pulse Ox 08/23/21 07:41 36.8 C 103 H 103 H 20 142/78 H 96 08/23/21 06:21 37.2 C 85 16 118/65 93 08/23/21 01:00 36.9 C 111 H 18 149/61 H 97 08/22/21 23:58 102 H 17 125/63 98 08/22/21 22:07 71 16 167/80 H 96 PG Care Time/CCT Total # of Minutes Spent Total Time Spent with Patient: Total time spent is greater than 50% in coordination of care (as documented) at patient's floor/unit and/or counseling patient: Coding Level of Care Code 83976 Subseq Hosp Care Lvl 1 Diagnoses Acute appendicitis K35.80
[2021-08-23] MEDS ORDERED: BUPIVACAINE/EPINEPHRINE 0.25% 1:200,000 30 ML VIAL ONE (08:58)
[2021-08-23] MEDS ORDERED: NEOSTIGMINE METHYLSULFATE 1 MG/ML 10ML VIAL ONE (09:59)
[2021-08-23] MEDS ORDERED: ONDANSETRON INJ 2 MG/ML 2 ML VIAL ONE (09:59)
[2021-08-23] MEDS ORDERED: GLYCOPYRROLATE 0.2 MG/ML VIAL ONE (09:59)
[2021-08-23] MEDS ORDERED: KETOROLAC 30 MG/ML VIAL ONE (10:20)
--- NOTE | 2021-08-23 10:21 | Post Operative Brief Note ---
PG Immediate Post Op with CF Date of Surgery August 23, 2021 Pre & Post Diagnosis Operation Date: 08/23/21 07:00 Pre-Op Diagnosis: Acute Appendicitis Post-Op Diagnosis: Acute Appendicitis with localized peritonitis I identified the patient and participated in the time-out.: Yes Procedure Operation Date: 08/23/21 07:00 Actual Procedures p Laparoscopic Appendectomy(Not Applicable) - Lemuel Chin DO Surgeon Lemuel Chin DO Electric Meter Repairer Coral Cheatham PA-C Estimated Blood Loss 5 Findings See Below Acutely inflamed dilated appendix with periappendiceal purulence, no signs of perforation Specimens Specimen Description: A: Appendix Drains Hightower Catheter (inserted prior to start of procedure by Marce Gabriel RN without difficulty. Removed at end of procedure) Complications none Disposition Disposition: Recovery Room
--- NOTE | 2021-08-23 10:24 | Operative Report ---
PG Post Operative Report Pre & Post Diagnosis Operation Date: 08/23/21 07:00 Pre-Op Diagnosis: Acute Appendicitis Post-Op Diagnosis: Acute Appendicitis with localized peritonitis I identified the patient and participated in the time-out.: Yes Procedure Operation Date: 08/23/21 07:00 Actual Procedures p Laparoscopic Appendectomy(Not Applicable) - Lemuel Chin DO Surgeon Lemuel Chin DO Formulation Technician Coral Cheatham PA-C Estimated Blood Loss 5 Findings See Below Acutely inflamed dilated appendix with periappendiceal purulence, no signs of perforation Specimens Appendix to pathology Drains None Anesthesia Type General Complications none Disposition Disposition: Recovery Room Indications 81-year-old female with uncontrolled diabetes here with acute appendicitis Description of Procedure The patient was brought to the OR and placed in the supine position and SCD's placed. At this time she underwent general endotracheal anesthesia without incident. At this time a Hightower catheter was placed under sterile conditions. Her abdomen was prepped and draped in the usual sterile fashion. She was given appropriate pre-operative antibiotics. A timeout was called, the procedure was verified as Laparoscopic appendectomy, possible open. Surgical, anesthesia and nursing teams agreed and the procedure was begun. After injection of 0.25% Marcaine with epinephrine, a supraumbilical incision was made using a #11 blade scalpel and carried down to the fascia with a hemostat. The abdomen was then elevated with towel clamps and entered using the Veress needle confirming position using the saline drop test. Pneumoperitoneum was established and 5mm trocar was placed. Laparoscope was introduced. No injury was seen from our entrance to the abdomen. At this time a 5mm suprapubic port and 12mm LLQ port were placed under direct visualization. The patient was placed in Trendelenburg and rotated to the left. At this time the appendix was identified running into the retroperitoneum and was bluntly from the cecum itself. There was some purulent fluid that was encountered and suctioned out. At this time the appendix was visualized and the tip was freed and elevated toward the abdominal wall. The appendix appeared inflamed, dilated and edematous. There was no obvious sign of perforation. A window was created in the mesoappendix at the base of the appendix. In order to aid in retracting the cecum another 5 mm port was placed in the right lower quadrant under direct visualization. Grasper was introduced which retracted the cecum cephalad in order to expose the base of the appendix. A 45mm purple load stapler was then fired across the base of the appendix which appeared healthy. The mesoappendix was then taken using Harmonic device. The appendix was then placed in an Endocatch bag and removed through the LLQ port site. Staple line was inspected and was intact. Hemostasis was complete. A small amount of purulent fluid was suctioned out of the RLQ and pelvis. At this point the omentum was placed over the staple line. The 12 mm port was then closed at the fascial level using a 0 Vicryl suture using the suture passer. All ports were removed under direct visualization and no bleeding was noted. The abdomen was desufflated and the skin was closed using 4-0 Monocryl in a subcuticular fashion. Sterile dressings were applied. Hightower catheter was removed. The patient was then awakened from anesthesia having remained stable throughout the entire case and transported to PACU. All needle and sponge counts were correct x 2. The physician certified pharmacist assistant was present scrubbed for the entire case. She was essential in positioning, prepping and draping the patient, driving the laparoscope, retraction and exposure, closure of the incisions and placement of the dressings. I attest to the content of the Intraoperative Record and any orders documented therein. Any exceptions are noted below.
[2021-08-23] MEDS ORDERED: SUGAMMADEX SODIUM 200 MG/2 ML VIAL IV ONE (10:39)
[2021-08-23] MEDS ORDERED: ESMOLOL HCL INJ 10 MG/ML 10ML VIAL IV ONE (10:42)
--- NOTE | 2021-08-23 11:31 | Anesthesiology Progress Note ---
Date of Service August 23, 2021 Anesthesia Post Procedure Vital Signs Vital Signs: Temp Pulse Pulse Pulse Pulse Resp BP 08/23/21 11:25 36.5 C 90 13 08/23/21 11:15 90 16 08/23/21 11:05 93 H 18 08/23/21 10:55 94 H 18 08/23/21 10:47 36.5 C 89 18 08/23/21 07:41 36.8 C 103 H 103 H 20 08/23/21 06:21 37.2 C 85 16 08/23/21 01:00 36.9 C 111 H 18 08/22/21 23:58 102 H 17 08/22/21 22:07 71 16 08/22/21 20:26 96 H 17 08/22/21 20:25 17 08/22/21 19:17 36.4 C L 107 H 20 90/40 L BP Pulse Ox 08/23/21 11:25 94/54 L 94 08/23/21 11:15 100/61 95 08/23/21 11:05 99/56 L 96 08/23/21 10:55 97/57 L 96 08/23/21 10:47 79/49 L 94 08/23/21 07:41 142/78 H 96 08/23/21 06:21 118/65 93 08/23/21 01:00 149/61 H 97 08/22/21 23:58 125/63 98 08/22/21 22:07 167/80 H 96 08/22/21 20:26 97 08/22/21 20:25 97 08/22/21 19:17 96 Pain Intensity Abdomen: Pain Intensity: 3 Transfer of Care Handoff Completed per policy Notes Mental Status: alert / awake / arousable Patient Amnestic to Procedure: Yes Nausea / Vomiting: adequately controlled Pain: adequately controlled Airway Patency, RR, SpO2: stable & adequate BP & HR: stable & adequate Hydration State: stable & adequate Anesthetic Complications: no major complications apparent and Pt Satisfied with anesthetic care
[2021-08-23] MEDS ORDERED: oxyCODONE HCL IR 5 MG TAB (IMMEDIATE RELEASE) PO PRN ×2 (11:48)
[2021-08-23] MEDS ORDERED: MoRPHine SULFATE 2 MG/ML CARP IV PRN (11:48)
[2021-08-23] MEDS: INSULIN GLARGINE SOLOSTAR 100 UNITS/ML 3 ML PEN SC SCH ×2 (12:03→21:28)
--- NOTE | 2021-08-23 12:49 | Hospitalist Progress Note ---
Date of Service August 23, 2021 Assessment & Plan (1) Acute appendicitis with localized peritonitis: Plan: 81-year-old white female presented with severe abdominal pain X 1 day. Noted to have leukocytosis of 16 K with a left shift and radiographic evidence of acute appendicitis without free air Is s/p laparoscopic appendectomy: 08/[address] Lemuel Chin. Found to have localized peritonitis Associated leukocytosis but otherwise patient afebrile and hemodynamically stable upon presentation into the ED Diet has been started postoperatively. Advance as tolerated Continue antibiotics General surgery consultedappreciate assistance Initiate heparin for DVT prophylaxis (to start tonight-minimum of 8 hours from surgical intervention) (2) Postoperative hypotension: Plan: BP normal upon presentation into the ED but found to have postoperative marginal hypotension (80s/50s). Postoperative hypotension likely a result of esmolol, fentanyl, and propofol given perioperatively. Do not believe this is related to sepsis Lactated Ringer's currently infusing at 80 cc/HR. Nursing staff notified to open wide open and recheck blood pressure. Can continue Trendelenburg until BP improved. If BP does not improve with IV hydration, may consider 1 dose of ephedrine. Continue to hold antihypertensive agents Parameters placed on oral oxycodone and IV morphine (which are ordered for pain control) (3) Leukocytosis: Plan: WBC count 16.K with a left shift upon presentation into the ED. 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 This does provide adequate anaerobic coverage. Would complete 7 days of antibiotics given the localized peritonitis (could transition to Cipro/Flagyl p.o.) (4) Uncontrolled diabetes mellitus: Plan: A1c elevated at 9.4% Patient typically on Lantus 50 units in the a.m., and 15 units at bedtime but given her n.p.o. status for surgical intervention, this was decreased to 20 units twice daily. Will uptitrate as her oral intake improves Utilize sliding scale with correction dosing as needed Hold aspirin (for which patient takes prophylactically) given surgical intervention (5) Hypertension: Plan: Hold antihypertensive agents given postoperative hypotension (this includes lisinopril and triamterene HCTZ) Plan: Plan of care to be discussed with Dr. Garcia. Further orders as warranted. Admission and Anticipated Discharge Date Admission Date: August 22, 2021 Subjective Patient seen on daily rounds today. She is s/p appendectomy done lap aroscopically today by Dr. Chin. Was found to have localized peritonitis. Postoperatively, patient is having marginal hypotension. BP was initially 82/40. She was placed in Trendelenburg and repeat BP obtainedstill low at 91/52 Despite receiving LR at 80 mL/HR. She did receive esmolol intraoperatively for intraoperative tachycardia. In addition, patient received fentanyl and propofol as part of her anesthetics. She currently denies dizziness/lightheadedness. She does take lisinopril and triamterene/HCTZ and received those yesterday morning prior to coming to the emergency department. Review of Systems Review of Systems: All systems reviewed and are unremarkable except as noted in HPI and below Denies fevers, chills, headache, nasal congestion, sore throat, cough, chest pain, shortness of breath, palpitations, orthopnea, PND, diarrhea, constipation, dysuria, hematuria, frequency, back pain, joint pain or swelling, easy bruising or bleeding, skin lesions or rashes. Physical Exam Physical Exam: General: Resting comfortably in her hospital bed. Somnolent but arousable. NAD. HEENT: Head is AT/NC. Buccal mucosa is moist and pink Neck: No JVD. Negative hepatojugular reflex Cardiac: RRR without M/G/R Lungs: CTA without W/R/R Abdomen: Normoactive X4. Surgical dressing dry and intact. Abdomen soft and nontender except over incision sites Extremities: No peripheral clubbing cyanosis or edema Neuro: A&O X4. Cranial nerves II through XII are grossly intact. No focal neuro deficits Skin: No obvious skin lesions or rashes Psych: Appropriate affect. Pleasant and cooperative Results & Data Results & Data ([facility]) Vital Signs (Past 12 Hours) Vital Signs Temp Pulse Pulse Pulse Resp BP Pulse Ox 08/23/21 12:13 91/52 L 08/23/21 12:10 36.8 C 82 16 82/40 L 96 08/23/21 11:49 36.9 C 91 H 16 93/59 L 94 08/23/21 11:35 87 15 101/48 L 95 08/23/21 11:25 36.5 C 90 13 94/54 L 94 08/23/21 11:15 90 16 100/61 95 08/23/21 11:05 93 H 18 99/56 L 96 08/23/21 10:55 94 H 18 97/57 L 96 08/23/21 10:47 36.5 C 89 18 79/49 L 94 08/23/21 07:41 36.8 C 103 H 103 H 20 142/78 H 96 08/23/21 06:21 37.2 C 85 16 118/65 93 08/23/21 01:00 36.9 C 111 H 18 149/61 H 97 Laboratory Results 08/23/21 06:15 08/23/21 06:15 PG Care Time/CCT Total # of Minutes Spent Total Time Spent with Patient: Total time spent is greater than 50% in coordination of care (as documented) at patient's floor/unit and/or counseling patient: Coding Level of Care Code 47495 Subseq Hosp Care Lvl 3 Diagnoses Acute appendicitis with localized peritonitis K35.30 Uncontrolled diabetes mellitus Hypertension I10 Leukocytosis D72.829 Postoperative hypotension I95.81
[2021-08-23] MEDS ORDERED: SODIUM CHLORIDE 0.9% 1000ML 1,000 ML IV SCH (14:30)
--- NOTE | 2021-08-23 14:48 | Electrocardiogram Report ---
Test Reason : Blood Pressure : / mmHG Vent. Rate : 092 BPM Atrial Rate : 092 BPM P-R Int : 142 ms QRS Dur : 076 ms QT Int : 358 ms P-R-T Axes : 017 076 095 degrees QTc Int : 442 ms Sinus rhythm with Premature atrial complexes Low voltage QRS Septal infarct , age undetermined Abnormal ECG When compared with ECG of 09-MAR-2019 10:23, Septal infarct is now Present Confirmed by Robbin Flores ([id number]) on 08/23/2021 2:47:47 PM Referred By: REFERRED SELF Confirmed By:Robbin Flores
[2021-08-23] MEDS: HEPARIN SOD 5,000 UNIT/0.5 ML VIAL SQ SCH (21:26)
--- NOTE | 2021-08-23 23:15 | Billing Data ---
Date of Service August 23, 2021 Coding Level of Care Code 71312 Initial Inpt Care Lvl 3
[2021-08-24] MEDS: LACTATED RINGER'S 1,000 ML IV SCH ×2 (02:02→11:22)
[2021-08-24] MEDS: cefOXitin 2,000 MG in DEXTROSE 5% 50 ML IV SCH (05:53)
--- NOTE | 2021-08-24 07:45 | Surgery Progress Note ---
Date of Service August 24, 2021 Assessment & Plan (1) Acute appendicitis: Plan: POD#1 lap appy Labs pending this AM Patient feeling well overall If she continues to tolerate diet and pain controlled she may be discharged today from our standpoint Would like to send her out on a 10 day course of po abx for intraop findings May remove outer surgical dressings tomorrow. No heavy lifting >10lbs for the next two weeks Dispo instructions reviewed, f/u in clinic with Dr. Chin in 1-2 weeks Admission and Anticipated Discharge Date Admission Date: August 22, 2021 Subjective Patient feeling better than when she came in. Has some incisional pain, but controlled and not receiving pain meds. Denies nausea/vomiting. Tried eating a diet but her IV was in the way, it has since been relocated to the other arm Physical Exam Physical Exam: awake/alert, sitting up at the side of the bed Gastrointestinal (Abdomen): Inspection/Auscultation: + abdominal surgical incision (dressings with scant drainage; intact) Percussion/Palpation: + abdomen tender (michelle incisional ttp) and abdomen soft Results & Data ([facility]) Vital Signs (Past 12 Hours) Vital Signs Temp Pulse Resp BP Pulse Ox 08/24/21 02:37 37.2 C 91 H 20 113/66 93 08/23/21 22:23 37.4 C 88 16 97/62 L 91 PG Care Time/CCT Total # of Minutes Spent Total Time Spent with Patient: Total time spent is greater than 50% in coordination of care (as documented) at patient's floor/unit and/or counseling patient: Coding Level of Care Code None Diagnoses Acute appendicitis K35.80
[2021-08-24] MEDS: HEPARIN SOD 5,000 UNIT/0.5 ML VIAL SQ SCH (07:57)
[2021-08-24] MEDS: INSULIN ASPART PER UNIT SC SCH ×2 (09:20→13:09)
[2021-08-24] MEDS: INSULIN GLARGINE SOLOSTAR 100 UNITS/ML 3 ML PEN SC SCH (09:20)
[2021-08-24 09:41] LABS: Basophils # (auto) 0.02 K/uL (0-0.2); Basophils % (auto) 0.1 %; Eosinophils # (auto) 0.07 K/uL (0-0.5); Eosinophils % (auto) 0.5 %; Hematocrit (blood only) 34.5 % (37-47); Hemoglobin 11.3 g/dL (12.0-16.0); Immature Granulocytes # (auto) 0.06 K/uL (0.00-0.02); Immature Granulocytes % (auto) 0.4 %; Lymphocytes % (auto) 11.9 %; Mean Corpuscular Hemoglobin 29.8 pg (25-34); Mean Corpuscular Hgb Conc 32.8 g/dL (32-36); Mean Platelet Volume 10.4 fL (7.4-10.4); Monocytes # (auto) 0.65 K/uL (0.11-0.59); Monocytes % (auto) 4.3 %; Neutrophils # (auto) 12.53 K/uL (1.4-6.5); Neutrophils % (auto) 82.8 %; Platelet Count 283 K/uL (130-400); RDW Coefficient of Variation 14.8 % (11.5-14.5); RDW Standard Deviation 49.8 fL (36.4-46.3); Red Blood Count 3.79 M/uL (4.2-5.4); White Blood Count 15.13 K/uL (4.8-10.8)
[2021-08-24 10:02] LABS: BUN Creatinine Ratio 15.4 (10-20); Calcium 8.5 mg/dl (8.5-10.1); Est GFR (African American) 48.3 ml/min; Est GFR (Non-African American) 41.7 ml/min; Potassium 4.1 mmol/L (3.5-5.1)
--- NOTE | 2021-08-24 14:25 | Discharge Summary ---
Date of Service August 24, 2021 Admission HPI Per Admitting Provider Yeni Heath is a 81yo female with PMHx significant for insulin-dependent DM (A1c 8.9 on 05/09/2021), HTN and HLD who presented to [facility] ED on 08/22 for acute- onset/worsening RLQ abdominal pain x10 hours, with associated subjective fever/chills. In the ED the patient was afebrile, mildly tachycardic and mildly hypertensive. Lab work-up showed WBC 16.06 with neutrophilic predominance and mild L shift, BUN 26/Cr 1.12, Lipase WNL. UA cloudy with 2+ LE/WBC>30/Bacteria2+/Epith cells >30. CT A/P with acute appendicitis, without abscess or free air. Patient was given Tylenol 1g IV x1 which helped significantly with pain. Was also given Reglan 5mg IV x1 for nausea, NSS 1L bolus, and Cefoxitin 2g IV x1 @1999. General surgery consulted with plans for lap vs open appy in the AM. Principal Diagnosis 1. Acute appendicitiss/p laparoscopic cholecystectomy 2. Localized peritonitis 3. Leukocytosisdowntrending 4. Mild EDDIE 5. Postoperative hypotensionresolved Discharge Exam General: Resting comfortably in her hospital bed. Somnolent but arousable. NAD. HEENT: Head is AT/NC. Buccal mucosa is moist and pink Neck: No JVD. Negative hepatojugular reflex Cardiac: RRR without M/G/R Lungs: CTA without W/R/R Abdomen: Normoactive X4. Surgical dressing dry and intact. Abdomen soft and nontender except over incision sites Extremities: No peripheral clubbing cyanosis or edema Neuro: A&O X4. Cranial nerves II through XII are grossly intact. No focal neuro deficits Skin: No obvious skin lesions or rashes Psych: Appropriate affect. Pleasant and cooperative Discharge Data Allergies Allergy/AdvReac Type Severity Reaction Status Date / Time Penicillins Allergy Unknown CAN'T Verified 08/22/21 20:28 REMEMBER Consultations 08/22/21 21:29 Consult General Surgery Stat 08/22/21 22:20 ED Decision to Admit Stat Procedures Performed Operation Date: 08/23/21 07:00 Actual Procedures p Laparoscopic Appendectomy(Not Applicable) - Lemuel Chin, Ordered Studies 08/22/21 20:14 CT abd pelvis IV con only Stat IMPRESSION: 1. Findings consistent with acute appendicitis. Periappendiceal fluid and stranding. No abscess. No free air. 2. Cholelithiasis. No evidence for acute cholecystitis. 3. Colonic diverticulosis without evidence for acute diverticulitis. Diabetes Follow up Diabetes Follow-up Needed for HgbA1c >9% Hospital Course (1) Acute appendicitis with localized peritonitis: 81-year-old white female presented with severe abdominal pain X 1 day. Noted to have leukocytosis of 16 K with a left shift and radiographic evidence of acute appendicitis without free air Is s/p laparoscopic appendectomy: 08/[address] Lemuel Chin. Found to have localized peritonitis Associated leukocytosis but otherwise patient afebrile and hemodynamically stable upon presentation into the ED Diet has been started postoperatively and advanced empirically on cefoxitin Seen on daily rounds 08/24. Is POD #1. Overall, reporting only mild incision site pain but otherwise denies fevers, chills, chest pain, shortness of breath, abdominal pain, nausea or vomiting. She is tolerating oral intake. She is afebrile. Blood pressure is much improved (currently 114/68). Her creatinine is slightly up to 1.2 (likely from postoperative hypotension). She has been cleared to go home by general surgery. I mentioned keeping her overnig ht given her persistent leukocytosis (down to 15,000 from 17,000) but she feels well. I let the option up to her and she would prefer to go home. This lab value is not necessarily a reason to keep her in the hospital thus I feel comfortable discharging her with continued antibiotics. Should complete full course of Cipro/Flagyl. I do want to repeat her blood work to trend her white blood cell count and her creatinine. She should hold her lisinopril and triamterene HCTZ today and tomorrow. Okay to resume on Sunday. Okay to resume metoprolol with tonight's dose. Follow-up labs to be obtained Fridaysee order. Follow-up with PCP next week. Follow-up with general surgery in 1 to 2 weeks. (2) Postoperative hypotension: BP normal upon presentation into the ED but found to have postoperative marginal hypotension (80s/50s). Postoperative hypotension likely a result of esmolol, fentanyl, and propofol given perioperatively. Do not believe this is related to sepsis Patient aggressively hydrated and blood pressure improved. Currently 114/68. Did not require any ephedrine Antihypertensive agents held Parameters placed on oral oxycodone and IV morphine (which are ordered for pain control) (3) Leukocytosis: WBC count 17.K with a left shift upon presentation into the ED. Likely related to acute appendicitis Likely related to appendicitis Again, was going to continue with hospital stay to continue to trend this number but she does not appear ill or toxic. She would like to go home and I do not see a contraindication to this. Continue full course of antibiotics with follow-up labs on Fridaysee order (4) Uncontrolled diabetes mellitus: A1c elevated at 9.4% Patient typically on Lantus 50 units in the a.m., and 15 units at bedtime but given her n.p.o. status for surgical intervention, this was decreased to 20 units twice daily. Will uptitrate as her oral intake improves Utilize sliding scale with correction dosing as needed Held aspirin (for which patient takes prophylactically) given surgical intervention. Okay to resume on Sunday (5) Hypertension: Patient should hold her lisinopril and triamterene HCTZ today and tomorrow. Okay to resume on Sunday. Resume metoprolol with tonight's dose Patient seen and agreed upon by Dr. Shirley Total Time Total Time Spent Total Time Spent (In Minutes): 45 minutes including time spent with patient, preparation of documentation, coordination of care Discharge Plan Discharge Items Patient Disposition: Home - Self-Care Reason For Visit: ACUTE APPENDICITIS Discharge Diagnosis: acute appendicitis Activity: Per Instructions section Lifting: No more than 10 pounds Bathing Comment: may shower over bandages; no soaking in tubs/pools Exercise/Sports: Wait until after follow-up appointment Driving/Machine Use: no driving while taking any narcotics for pain Non-emergency contact: Primary Care Provider and Surgeon Call non-emergency contact if: you have any medication questions, your symptoms worsen, your pain is not controlled, your pain is concerning for you, you have a fever, your temperature is above 101.5, your wound has increased redness, your wound has increased drainage and your wound pain has increased Follow-up/Referrals: Lemuel Chin DO [Physician] - 09/05/21 10:30 am (Please call to schedule follow up in clinic within 2 weeks) PCP,NO [Physician] - Diet: Carb Consistent or DM2 Addtl Attending Provider Instructions: You may remove your outer surgical dressings on 08/25/21. You will have small white bandages on underneath called steri-strips. You may leave these in place, they will tend to fall off on their own within 7-10 days. You may purchase Tylenol over the counter if needed for pain. Oxycodone has been prescribed to use for for additional pain control-- this can be jabit forming, can cause somnolence and should not be taken when operating heavy machinery continue full course of antibiotics (Cipro/Flagyl)-- totaling 10 days Hold your Lisinopril, Triamterene HCTZ tomorrow-- resume on Sunday Okay to resume your Metoprolol tonight Hold Aspirin tomorrow- okay to resume Sunday You will need repeat labs drawn on Sunday (to trend your white blood cell count and your kidney function) PUSH your fluids Follow up with General Surgery (7-10 days) Return to the ED for new or worsening symptoms Pending Studies at Discharge: Yes Studies:: surgical pathology Stand-Alone Forms: [facility], Opioid Pain Management, Smoking Cessation Medications and DC Order Prescriptions: New oxycodone 5 mg tablet 5 - 10 mg PO .[id number] PRN (Reason: pain, for initial therapy, max 6 tabs per day) Qty: 15 RF: 0 metronidazole 500 mg tablet 500 mg PO Q8H 10 Days Qty: 30 RF: 0 ciprofloxacin HCl [Cipro] 500 mg tablet 500 mg PO BID Qty: 20 RF: 0 Continued Basaglar KwikPen U-100 Insulin 100 unit/mL (3 mL) insulin pen 50 unit SUBCUT QDL RF: 0 Basaglar KwikPen U-100 Insulin 100 unit/mL (3 mL) insulin pen 15 unit SUBCUT QDD RF: 0 pravastatin 40 mg Tablet 40 mg PO QAM RF: 0 aspirin [Aspirin Low Dose] 81 mg Tablet,Delayed Release (Dr/Ec) 81 mg PO QAM RF: 0 lisinopril 10 mg tablet 10 mg PO QAM RF: 0 triamterene-hydrochlorothiazid 37.5-25 mg tablet 1 tab PO QAM RF: 0 metoprolol tartrate 25 mg tablet 25 mg PO BID RF: 0 Discharge Orders: Discharge Order (Routine); Ordered 08/24/21 Ordered By: Shanika Rodríguez/Other Patient Handouts: Appendectomy, What Is Appendicitis? Admission Data Admit Date/Time: 08/22/21 23:36 Attending Provider: Bipin Shirley Admit Provider: Pelon Tim Primary Care Provider: Jarvis Harding Other Providers: Lemuel Chin ; Miky Santos Other Interventions: Discharge Summary Assessment (RN) Last Done: 08/24/21 12:14 Supervising Physician Co-Signing Physician Notes Patient seen and examined at bedside. During face to face encounter, obtained phsyical examination and discussed hospital course. I discussed discharge plan with ROSAURA Herndon and Patient. I reviewed above note and agree with it. Patient treated for appendicitis will be discharged on antibiotics Coding Level of Care Code D/C DAY MANAGEMENT >30 MINS Diagnoses Acute appendicitis with localized peritonitis K35.30 Appendicitis abscess presence: without abscess Appendicitis gangrene presence: unspecified whether gangrene present Appendicitis perforation presence: without perforation Postoperative hypotension I95.81 Leukocytosis D72.829 Uncontrolled diabetes mellitus Hypertension I10
== END 2021-08-24 14:30 | disposition home or self-care (01) | DRG 342 ==
LOC: ED 19:13 → 3W 23:36 → SUATTDRO 23:36 → 3W 08-23 00:19
DX: N17.9 Acute kidney failure, unspecified; I95.81 Postprocedural hypotension; I10 Essential (primary) hypertension; Z79.4 Long term (current) use of insulin; E11.9 Type 2 diabetes mellitus without complications; Z79.82 Long term (current) use of aspirin; E78.5 Hyperlipidemia, unspecified; K35.30 Acute appendicitis with localized peritonitis, without perforation or gangrene; Z88.0 Allergy status to penicillin

== ENCOUNTER 2022-12-03 01:16 | Inpatient (IN) ==
[2022-12-03] MEDS ORDERED: SODIUM CHLORIDE 0.9% 1,000 ML IV ONE ×2 (01:41→02:50)
[2022-12-03 02:30] LABS: Appearance Urine Cloudy (Clear); Bacteria Urine Automated 2+ (Negative); Bilirubin Urine Negative (Negative); Blood Urine 1+ (Negative); Color Urine Yellow; Glucose Urine UA 1+ (Negative); Ketones Urine Negative (Negative); Leukocyte Esterase Urine 2+ (Negative); Nitrite Urine Negative (Negative); Protein Urine 1+ (Negative); RBC Urine Automated 0-4 /hpf (0-4); Specific Gravity Urine 1.013 (1.000-1.030); Urobilinogen Urine Negative (Negative); WBC Urine Automated >30 /hpf (0-5)
[2022-12-03] MEDS ORDERED: cefTRIAXone SODIUM 2,000 MG/70 ML BAG IV STA (02:38)
[2022-12-03 02:42] LABS: Influenza A virus by PCR Negative (Neg); Influenza B virus by PCR Negative (Neg); RSV by PCR Negative (Neg); SARS CoV2 RNA(COVID-19) Ceph NEGATIVE (Negative)
[2022-12-03 03:07] LABS: Hematocrit (blood only) 41.7 % (37.0-47.0); Hemoglobin 13.6 g/dl (12.0-16.0); Mean Corpuscular Hemoglobin 29.1 pg (25.0-34.0); Mean Corpuscular Hgb Conc 32.6 g/dL (32.0-36.0); Mean Corpuscular Volume 89.3 fL (80.0-100.0); Mean Platelet Volume 10.5 fL (9.4-12.4); Platelet Count 259 K/uL (130-400); RDW Coefficient of Variation 13.2 % (11.5-14.5); RDW Standard Deviation 43.2 fL (36.4-46.3); Red Blood Count 4.67 M/uL (4.20-5.40); White Blood Count 11.31 K/ul (4.8-10.8)
[2022-12-03] MEDS ORDERED: ACETAMINOPHEN 1,000 MG/100 ML VIAL IV STA (03:10)
[2022-12-03 03:12] LABS: Albumin Globulin Ratio 1.8 (0.9-2); Albumin Level 4.2 gm/dl (3.4-5.0); BUN Creatinine Ratio 18.9 (10-20); Bilirubin,Total 0.4 mg/dl (0.2-1.0); Calcium 9.4 mg/dl (8.6-10.3); Creatinine Clr Calc Pharmacy 36.4 ml/min; Est GFR (African American) 48.5 ml/min; Est GFR (Non-African American) 41.8 ml/min; Globulin 2.3 gm/dl (2.5-4.0); Potassium 3.7 mmol/L (3.5-5.1); Total Protein 6.5 gm/dl (6.0-8.3)
[2022-12-03 03:42] LABS: Basophils # (auto) 0.01 K/uL (0.00-0.20); Basophils % (auto) 0.1 %; Eosinophils # (auto) 0.03 K/uL (0.00-0.50); Eosinophils % (auto) 0.3 %; Immature Granulocytes # (auto) 0.07 K/uL (0.01-0.20); Immature Granulocytes % (auto) 0.6 %; Lymphocytes # (auto) 0.57 K/uL (1.20-3.40); Monocytes # (auto) 0.03 K/uL (0.11-0.59); Monocytes % (auto) 0.3 %; Neutrophils % (auto) 93.7 %
--- NOTE | 2022-12-03 03:43 | History & Physical Report ---
Date of Service December 03, 2022 Assessment & Plan (1) Sepsis due to gram-negative urinary tract infection: (2) Uncontrolled diabetes mellitus: (3) Hypertension: (4) Hyperlipemia: Plan History of gram-negative UTI secondary to Klebsiella pneumoniae/recurrent UTI- Follow urine culture and sensitivity Status post 2 L normal saline in the ED Continue normal saline at 80 mils per hour x1 L Given ceftriaxone 2 g IV in the ED, and will continue daily Acetaminophen 650 mg by mouth every 6 hours as needed for mild pain or fever Diabetes mellitus- Reduce glargine from 30 units twice daily to 15 units subcu twice daily Placed on Accu-Cheks with NovoLog SSI Check a hemoglobin A1c Hypertension/renal insufficiency- Hold triamterene/HCTZ and lisinopril Continue metoprolol tartrate 25 mg p.o. twice daily History of Present Illness Chief Complaint: The patient presents to the emergency department with complaint of difficulty urinating over the past 48 hours, and when she developed shaking chills at about 1130 this evening, she decided come to the emergency department for assessment Primary Care Provider: SALVADOR Gregorio The patient is an 82-year-old female with a past medical history including umbilical hernia acute appendicitis with local peritonitis status post appendectomy 08/21, uncontrolled diabetes mellitus, hypertension, hyperlipidemia, proximal humerus fracture. The patient reports to the emergency department with shaking chills shortly before arrival to the ED, noted after a couple days of urinary frequency, urgency and dysuria. Significant laboratories: WBC 11.31, creatinine 1.22, BUN 23, glucose 227, lactic acid 3.7 Urinalysis positive for urinary tract infection Allergies Allergy/AdvReac Type Severity Reaction Status Date / Time Penicillins Allergy Unknown CAN'T Verified 06/29/22 09:24 REMEMBER Home Medications Medication Instructions Recorded Confirmed Type aspirin 81 mg tablet,delayed 81 mg PO QAM 06/02/18 06/29/22 History release (Tate Low Dose Aspirin) insulin aspart U-100 100 unit/mL 4 unit (0.04 mL) subcut .COMPLEX 01/17/22 06/29/22 Rx (3 mL) subcutaneous pen (Novolog #15 mL FlexPen U-100 Insulin aspart) metoprolol tartrate 25 mg tablet 25 mg PO BID #180 tabs 02/21/22 06/29/22 Rx pen needle, diabetic 32 gauge x #100 ea 03/14/22 06/29/22 Rx 1/6" blood sugar diagnostic (OneTouch #200 ea 04/04/22 06/29/22 Rx Ultra Test strips) pravastatin 40 mg tablet 40 mg PO QAM #90 tabs 04/04/22 06/29/22 Rx empagliflozin 10 mg tablet 10 mg PO DAILY #30 tabs 06/29/22 06/29/22 Rx (Jardiance) cholecalciferol (vitamin D3) 100 100 mcg PO DAILY #30 tabs 07/25/22 Rx mcg (4,000 unit) tablet lisinopril 10 mg tablet 10 mg PO QAM #90 tabs 09/20/22 Rx triamterene 37.5 1 tab PO QAM #90 tabs 09/20/22 Rx mg-hydrochlorothiazide 25 mg tablet insulin glargine 100 unit/mL (3 30 unit (0.3 mL) subcut BID #45 11/27/22 Rx mL) subcutaneous pen ([employer] syringes KwikPen U-100 Insulin) Past Med/Surg History Medical History Abdominal pain Hyperlipemia Hypertension Obesity Proximal humerus fracture Sinus disease Uncontrolled diabetes mellitus Surgical History History of laparoscopic appendectomy (08/23/21) Family History Father Colonic polyp Other Family history non-contributory Denies family history of Ovarian cancer Prostate cancer Myocardial infarction Breast cancer Colorectal cancer Social History Smoking Status: Never smoker Second Hand Exposure: No; Do You Dip or Chew Tobacco: No; Hx Alcohol Use: No Hx Substance Use: No Preferred Language: Beninese Communication Ability: Effective Visual Impairment: No Limitations Hearing Ability: Normal Supercharger Repair Supervisor Required: No Beliefs That Will Affect Care: None marital status: Current Living Situation: Spouse current occupational status: retired How many Children do You have: 0 Feels Safe at Home: Yes Childhood Exposure to Second-Hand Smoke: Yes (father/ father in law) Diet: diabetic and regular caffeine: Yes (coffee) during the past year weight has: remained stable Dental Care, Regularly: No Physical Activity Frequency: Does not Exercise Seatbelt Use: always Sunscreen Use: Yes Assistive Devices: Cane Review of Systems Review of Systems: The patient denies chest pain, palpitations, shortness of breath, dyspnea on exertion, cough, lower extremity swelling, sore throat, nausea, vomiting, diarrhea , constipation, abdominal pain, blood in urine or stool, lightheadedness, dizziness, headache, memory loss, loss of consciousness, rash, abnormal bruising or bleeding, imbalance, focal or generalized weakness, numbness or tingling in arms or legs, generalized arthralgias or myalgias, back or neck pain. The review of systems is otherwise negative other than for that already noted above, and at least 10 systems have been reviewed. Physical Exam Physical Exam: The patient is awake, alert and oriented 3, well developed and well nourished, normocephalic and atraumatic, lying in bed and in no acute distress. HEENT--PERRL, EOMI, mucous membranes and oropharynx mildly dry. Neck--supple. No JVD. No bruits. Thyroid normal, trachea midline, no adenopathy. Heart--normal S1 and S2. No murmurs, rubs or gallops. Lungs--clear bilaterally, no respiratory distress, no accessory muscle use. Abdomen--normal bowel sounds and soft. Nontender. Nondistended. Mild suprapubic pain Extremities--no cyanosis or clubbing. No edema. Dermatologic--normal skin turgor, normal color, no abnormal lymph nodes, no rash. Neurologic--cranial nerves II through XII grossly intact. Rheumatologic--normal range of motion. Psychiatric--normal affect. Results & Data Results & Data Vital Signs (Past 12 Hours) Vital Signs Temp Pulse Pulse Resp BP BP Pulse Ox 12/03/22 03:00 95 H 22 129/64 98 12/03/22 02:12 100 H 12/03/22 01:41 97 H 14 95 12/03/22 01:02 38.6 C H 110 H 20 155/90 H 93 O2 Del Method 12/03/22 03:00 Room Air 12/03/22 02:12 12/03/22 01:41 Room Air 12/03/22 01:02 Room Air Laboratory Results Laboratory Results WBC 11.31 K/ul (4.8-10.8) H 12/03/22 02:37 RBC 4.67 M/uL (4.20-5.40) 12/03/22 02:37 Hgb 13.6 g/dl (12.0-16.0) 12/03/22 02:37 Hct 41.7 % (37.0-47.0) 12/03/22 02:37 MCV 89.3 fL (80.0-100.0) 12/03/22 02:37 MCH 29.1 pg (25.0-34.0) 12/03/22 02:37 MCHC 32.6 g/dL (32.0-36.0) 12/03/22 02:37 RDW Std Deviation 43.2 fL (36.4-46.3) 12/03/22 02:37 RDW Coeff of Mary Carmen 13.2 % (11.5-14.5) 12/03/22 02:37 Plt Count 259 K/uL (130-400) 12/03/22 02:37 MPV 10.5 fL (9.4-12.4) 12/03/22 02:37 Immature Gran % (Auto) 0.6 % 12/03/22 02:37 Neut % (Auto) 93.7 % 12/03/22 02:37 Lymph % (Auto) 5.0 % 12/03/22 02:37 Scott % (Auto) 0.3 % 12/03/22 02:37 Eos % (Auto) 0.3 % 12/03/22 02:37 Baso % (Auto) 0.1 % 12/03/22 02:37 Neut # (Auto) 10.60 K/uL (1.40-6.50) H 12/03/22 02:37 Lymph # (Auto) 0.57 K/uL (1.20-3.40) L 12/03/22 02:37 Scott # (Auto) 0.03 K/uL (0.11-0.59) L 12/03/22 02:37 Eos # (Auto) 0.03 K/uL (0.00-0.50) 12/03/22 02:37 Baso # (Auto) 0.01 K/uL (0.00-0.20) 12/03/22 02:37 Immature Gran # (Auto) 0.07 K/uL (0.01-0.20) 12/03/22 02:37 Sodium 138 mmol/L (136-145) 12/03/22 02:37 Potassium 3.7 mmol/L (3.5-5.1) 12/03/22 02:37 Chloride 105 mmol/L (98-107) 12/03/22 02:37 Carbon Dioxide 21 mmol/L (21-32) 12/03/22 02:37 Anion Gap 12 (3-11) H 12/03/22 02:37 BUN 23 mg/dl (6-23) 12/03/22 02:37 Creatinine 1.22 mg/dl (0.6-1.2) H 12/03/22 02:37 Est Cr Clr Drug Dosing 36.4 ml/min 12/03/22 02:37 Est GFR ( Amer) 48.5 ml/min 12/03/22 02:37 Est GFR (Non-Af Amer) 41.8 ml/min 12/03/22 02:37 BUN/Creatinine Ratio 18.9 (10-20) 12/03/22 02:37 Glucose 227 mg/dl (70-99(Fasting)) H 12/03/22 02:37 Lactate 3.2 mmol/L (0.4-2.0) H* 12/03/22 04:25 Calcium 9.4 mg/dl (8.6-10.3) 12/03/22 02:37 Total Bilirubin 0.4 mg/dl (0.2-1.0) 12/03/22 02:37 AST 11 U/L (13-39) L 12/03/22 02:37 ALT 10 U/L (7-52) 12/03/22 02:37 Alkaline Phosphatase 80 U/L (34-104) 12/03/22 02:37 Total Protein 6.5 gm/dl (6.0-8.3) 12/03/22 02:37 Albumin 4.2 gm/dl (3.4-5.0) 12/03/22 02:37 Globulin 2.3 gm/dl (2.5-4.0) L 12/03/22 02:37 Albumin/Globulin Ratio 1.8 (0.9-2) 12/03/22 02:37 Urine Color Yellow 12/03/22 01:33 Urine Appearance Cloudy (Clear) A 12/03/22 01:33 Urine pH 5.0 (4.5-7.5) 12/03/22 01:33 Ur Specific [place] 1.013 (1.000-1.030) 12/03/22 01:33 Urine Protein 1+ (Negative) H 12/03/22 01:33 Urine Glucose (UA) 1+ (Negative) H 12/03/22 01:33 Urine Ketones Negative (Negative) 12/03/22 01:33 Urine Blood 1+ (Negative) H 12/03/22 01:33 Urine Nitrite Negative (Negative) 12/03/22 01:33 Urine Bilirubin Negative (Negative) 12/03/22 01:33 Urine Urobilinogen Negative (Negative) 12/03/22 01:33 Ur Leukocyte Esterase 2+ (Negative) H 12/03/22 01:33 Urine WBC (Auto) >30 /hpf (0-5) H 12/03/22 01:33 Urine RBC (Auto) 0-4 /hpf (0-4) 12/03/22 01:33 U Hyaline Cast (Auto) 1-5 /lpf (0-5) 12/03/22 01:33 U Epithel Cells (Auto) 5-10 /lpf (0-5) H 12/03/22 01:33 Urine Bacteria (Auto) 2+ (Negative) H 12/03/22 01:33 SARS-CoV-2 (PCR) NEGATIVE (Negative) 12/03/22 01:44 Influenza Type A (PCR) Negative (Neg) 12/03/22 01:44 Influenza Type B (PCR) Negative (Neg) 12/03/22 01:44 RSV (RT-PCR) Negative (Neg) 12/03/22 01:44 Code Status & VTE Plan Code Status Full code VTE Prophylaxis Plan VTE Prophylaxis will be ordered: Yes PG Care Time/CCT Total # of Minutes Spent Total Time Spent with Patient: Total time spent is greater than 50% in coordination of care (as documented) at patient's floor/unit and/or counseling patient: Coding Level of Care Code 44562 INT INP/OBS CARE 3/75MIN Diagnoses Sepsis due to gram-negative urinary tract infection A41.50; N39.0 Uncontrolled diabetes mellitus Hypertension I10 Hyperlipemia E78.5
--- NOTE | 2022-12-03 06:47 | Emergency Department Note ---
ED Provider Note History of Present Illness Chief Complaint: Illness Stated Complaint: SHAKING/CHILLS/HYPERGLYCEMIC Time Seen by Provider: 12/03/22 01:24 Source: patient Mode of arrival: EMS Limitations: no limitations This patient is an 82-year-old female who presents to the emergency department for evaluation of chills which woke her up from sleep about 2 hours prior to arrival. Patient states that she was awoken with shaking chills. She denies other symptoms. She states that she felt okay prior to going to bed. She denies any abdominal pain or back pain. She denies any vomiting. Home Medications Medication Instructions Recorded Confirmed Type aspirin 81 mg tablet,delayed 81 mg PO QAM 06/02/18 12/03/22 History release (Tate Low Dose Aspirin) metoprolol tartrate 25 mg tablet 25 mg PO BID #180 tabs 02/21/22 12/03/22 Rx pen needle, diabetic 32 gauge x #100 ea 03/14/22 06/29/22 Rx 1/6" blood sugar diagnostic (OneTouch #200 ea 04/04/22 06/29/22 Rx Ultra Test strips) pravastatin 40 mg tablet 40 mg PO QAM #90 tabs 04/04/22 12/03/22 Rx cholecalciferol (vitamin D3) 100 100 mcg PO DAILY #30 tabs 07/25/22 12/03/22 Rx mcg (4,000 unit) tablet lisinopril 10 mg tablet 10 mg PO QAM #90 tabs 09/20/22 12/03/22 Rx triamterene 37.5 1 tab PO QAM #90 tabs 09/20/22 12/03/22 Rx mg-hydrochlorothiazide 25 mg tablet insulin glargine 100 unit/mL (3 30 unit (0.3 mL) subcut BID #45 11/27/22 12/03/22 Rx mL) subcutaneous pen (Basaglar syringes KwikPen U-100 Insulin) Allergies Allergy/AdvReac Type Severity Reaction Status Date / Time Penicillins Allergy Unknown CAN'T Verified 06/29/22 09:24 REMEMBER Past Med/Surg History Medical History Abdominal pain Hyperlipemia Hypertension Obesity Proximal humerus fracture Sinus disease Uncontrolled diabetes mellitus Surgical History History of laparoscopic appendectomy (08/23/21) Laparoscopic Appendectomy(Not Applicable) - Lemuel Chin, Family History Father Colonic polyp Other Family history non-contributory Denies family history of Ovarian cancer Prostate cancer Myocardial infarction Breast cancer Colorectal cancer Social History Smoking Status: Never smoker Second Hand Exposure: No; Do You Dip or Chew Tobacco: No; Hx Alcohol Use: No Hx Substance Use: No Preferred Language: Tamaz[place] Communication Ability: Effective Visual Impairment: No Limitations Hearing Ability: Normal Pot Liner Required: No Beliefs That Will Affect Care: None marital status: Current Living Situation: Spouse current occupational status: retired How many Children do You have: 0 Feels Safe at Home: Yes Childhood Exposure to Second-Hand Smoke: Yes (father/ father in law) Diet: diabetic and regular caffeine: Yes (coffee) during the past year weight has: remained stable Dental Care, Regularly: No Physical Activity Frequency: Does not Exercise Seatbelt Use: always Sunscreen Use: Yes Assistive Devices: Cane, Denture - Upper, Denture - Lower and Glasses Physical Exam Vital Signs Vital Signs - 24 hr 12/03/22 01:02 12/03/22 01:18 12/03/22 01:41 Temperature 38.6 C H Temperature Source Oral Pulse Rate 110 H 97 H Pulse Rate [Apical] Pulse Rhythm Regular Respiratory Rate 20 14 Respiratory Effort / Characteristics Non-Labored Spontaneous Non-Labored Spontaneous Respiratory Depth Normal Normal Respiratory Pattern Blood Pressure 155/90 H Blood Pressure [Left Arm] Blood Pressure Mean 111 Blood Pressure Mean [Left Arm] Pulse Oximetry 93 95 Oxygen Delivery Method Room Air Room Air Sepsis Recent Fever Within 48 Hours Yes Sepsis New/Unexplained Change in Mental Status No Sepsis Action Taken by Nursing Physician Notified 12/03/22 02:12 12/03/22 03:00 12/03/22 03:30 Temperature Temperature Source Pulse Rate 100 H Pulse Rate [Apical] 95 H 90 Pulse Rhythm Respiratory Rate 22 17 Respiratory Effort / Characteristics Non-Labored Spontaneous Respiratory Depth Normal Respiratory Pattern Regular Blood Pressure Blood Pressure [Left Arm] 129/64 125/60 Blood Pressure Mean Blood Pressure Mean [Left Arm] 85 81 Pulse Oximetry 98 94 Oxygen Delivery Method Room Air Room Air Sepsis Recent Fever Within 48 Hours Sepsis New/Unexplained Change in Mental Status Sepsis Action Taken by Nursing 12/03/22 04:00 12/03/22 04:30 12/03/22 05:00 Temperature Temperature Source Pulse Rate Pulse Rate [Apical] 87 88 78 Pulse Rhythm Respiratory Rate 16 16 16 Respiratory Effort / Characteristics Non-Labored Spontaneous Respiratory Depth Normal Respiratory Pattern Blood Pressure Blood Pressure [Left Arm] 109/48 L 101/45 L 105/47 L Blood Pressure Mean Blood Pressure Mean [Left Arm] 68 63 66 Pulse Oximetry 95 95 95 Oxygen Delivery Method Room Air Room Air Room Air Sepsis Recent Fever Within 48 Hours Sepsis New/Unexplained Change in Mental Status Sepsis Action Taken by Nursing 12/03/22 06:00 12/03/22 06:00 12/03/22 06:34 Temperature 37.2 C Temperature Source Oral Pulse Rate 81 Pulse Rate [Apical] 86 91 H Pulse Rhythm Respiratory Rate 16 18 Respiratory Effort / Characteristics Respiratory Depth Respiratory Pattern Blood Pressure Blood Pressure [Left Arm] 106/47 L 98/57 L Blood Pressure Mean Blood Pressure Mean [Left Arm] 66 70 Pulse Oximetry 94 97 Oxygen Delivery Method Room Air Room Air Sepsis Recent Fever Within 48 Hours Sepsis New/Unexplained Change in Mental Status Sepsis Action Taken by Nursing VITALS: Vitals are noted on the nurse's note and reviewed by myself. GENERAL: This is an 82-year-old female, ill-appearing. SKIN: The skin was without rashes. EARS: External auditory canals clear, tympanic membranes pearly daily without erythema or effusion bilaterally. EYES: Pupils equal round and reactive to light and accommodation. NOSE: Patent, turbinates without inflammation or discharge. No sinus tenderness. MOUTH: Mucous membranes moist. Tonsils are not enlarged. Pharynx without erythema or exudate. NECK: Supple without nuchal rigidity. No lymphadenopathy. HEART: Regular rate and rhythm without murmurs gallops or rubs. LUNGS: Clear to auscultation bilaterally without wheezes, rales or rhonchi. ABDOMEN: Positive bowel sounds x 4. Soft, nontender to palpation. NEURO: Patient was alert and oriented to person place and time. Course Administered Medications Acetaminophen (Acetaminophen 325 Mg Tab) 650 mg PO Q4H PRN PRN Reason: Pain or Fever Stop: 01/02/23 08:14 Last Admin: 12/03/22 23:33 Dose: 650 mg Documented By: Admin: 12/03/22 15:59 Dose: 650 mg Documented By: SHALOM Aspirin (Aspirin 81 Mg Ectab) 81 mg PO QAM JESUS Stop: 01/02/23 08:59 Last Admin: 12/03/22 09:57 Dose: 81 mg Documented By: ZI Empagliflozin (Empagliflozin 10 Mg Tab) 10 mg PO DAILY JESUS Stop: 01/02/23 08:59 Last Admin: 12/03/22 09:57 Dose: Not Given Documented By: ZI Heparin Sodium (Porcine) (Heparin Sod 5,000 Unit/0.5 Ml Vial) 5,000 units SQ Q12 JESUS Stop: 01/02/23 08:59 Last Admin: 12/03/22 20:29 Dose: 5,000 units Documented By: Admin: 12/03/22 09:58 Dose: 5,000 units Documented By: ZI Ceftriaxone Sodium 2,000 mg/ (Dextrose) 70 mls @ 100 mls/hr IV Q24H [facility]; Protocol Stop: 12/14/22 02:59 Last Infusion: 12/04/22 02:49 Dose: 0 mls/hr Documented By: Admin: 12/04/22 02:05 Dose: 100 mls/hr Documented By: DRAKE Insulin Aspart (Insulin Aspart Per Unit Charge) 0 units SC ACHS [facility] Stop: 01/02/23 08:29 Last Admin: 12/03/22 20:22 Dose: Not Given Documented By: Admin: 12/03/22 18:07 Dose: 3 units Documented By: SHALOM Co-signed By: ALLEN Admin: 12/03/22 12:50 Dose: 2 units Documented By: ALLEN Co-signed By: SHALOM Admin: 12/03/22 09:08 Dose: Not Given Documented By: ZI Insulin Glargine (Lantus Per Unit Charge) 15 units SC BID [facility] Stop: 01/02/23 08:59 Last Admin: 12/03/22 20:30 Dose: 15 units Documented By: DRAKE Co-signed By: MAURIZIO Admin: 12/03/22 10:07 Dose: 15 units Documented By: ZI Co-signed By: JYOTHI Metoprolol Tartrate (Metoprolol Tartrate 25 Mg Tab) 25 mg PO BID [facility] Stop: 01/02/23 08:59 Last Admin: 12/03/22 20:33 Dose: Not Given Documented By: Admin: 12/03/22 09:08 Dose: Not Given Documented By: ZI Pravastatin Sodium (Pravastatin Sod 40 Mg Tab) 40 mg PO QAM JESUS Stop: 01/02/23 08:59 Last Admin: 12/03/22 09:58 Dose: 40 mg Documented By: ZI Vitamin D (Cholecalciferol 1,000 Units 25 Mcg Tab) 4,000 units PO DAILY JESUS Stop: 01/02/23 08:59 Last Admin: 12/03/22 09:57 Dose: 4,000 units Documented By: ZI Discontinued Medications Sodium Chloride (Nss 1000ml) 1,000 mls @ 999 mls/hr IV .Q1H1M ONE Stop: 12/03/22 02:41 Last Infusion: 12/03/22 03:39 Dose: 0 mls/hr Documented By: Admin: 12/03/22 02:33 Dose: 999 mls/hr Documented By: NIKHIL Ceftriaxone Sodium (Rocephin) 2,000 mg in 70 mls @ 140 mls/hr IV NOW STA Stop: 12/03/22 03:07 Last Infusion: 12/03/22 03:19 Dose: 0 mls/hr Documented By: Admin: 12/03/22 02:42 Dose: 140 mls/hr Documented By: NIKHIL Sodium Chloride (Nss 1000ml) 1,000 mls @ 999 mls/hr IV .Q1H1M ONE Stop: 12/03/22 03:50 Last Infusion: 12/03/22 04:34 Dose: 0 mls/hr Documented By: Admin: 12/03/22 03:22 Dose: 999 mls/hr Documented By: MATTHEW Acetaminophen (Ofirmev) 1,000 mg in 100 mls @ 400 mls/hr IV NOW STA Stop: 12/03/22 03:24 Last Infusion: 12/03/22 03:39 Dose: 0 mls/hr Documented By: Admin: 12/03/22 03:19 Dose: 400 mls/hr Documented By: MATTHEW Potassium Chloride/Sodium Chloride (Normal Saline W/20 Meq Kcl) 20 meq in 1,000 mls @ 80 mls/hr IV .[id number] JESUS Stop: 12/03/22 20:59 Last Infusion: 12/03/22 21:41 Dose: 0 mls/hr Documented By: Admin: 12/03/22 09:07 Dose: 80 mls/hr Documented By: ZI Sodium Chloride (Nss 1000ml) 500 mls @ 999 mls/hr IV .Q31M ONE Stop: 12/03/22 16:52 Last Infusion: 12/03/22 17:34 Dose: 0 mls/hr Documented By: Admin: 12/03/22 16:37 Dose: 999 mls/hr Documented By: ALLEN Sodium Chloride (Nss 1000ml) 500 mls @ 999 mls/hr IV .Q31M ONE Stop: 12/03/22 23:52 Last Infusion: 12/04/22 00:08 Dose: 0 mls/hr Documented By: Admin: 12/03/22 23:35 Dose: 999 mls/hr Documented By: DRAKE Medical Decision Making Differential Diagnosis Viral syndrome, otitis, pharyngitis, pneumonia, influenza, meningitis, urinary tract infection, sepsis, bacteremia, as well as other pathologies. Home Medications was personally reviewed by me Laboratory Data Attestation: I reviewed the patient's lab results. 12/03/22 02:37 12/03/22 02:37 Lab Results 12/03/22 12/03/22 12/03/22 Range/Units 01:33 01:44 02:37 WBC 11.31 H (4.8-10.8) K/ul RBC 4.67 (4.20-5.40) M/uL Hgb 13.6 (12.0-16.0) g/dl Hct 41.7 (37.0-47.0) % MCV 89.3 (80.0-100.0) fL MCH 29.1 (25.0-34.0) pg MCHC 32.6 (32.0-36.0) g/dL RDW Std Deviation 43.2 (36.4-46.3) fL RDW Coeff of Mary Carmen 13.2 (11.5-14.5) % Plt Count 259 (130-400) K/uL MPV 10.5 (9.4-12.4) fL Immature Gran % (Auto) 0.6 % Neut % (Auto) 93.7 % Lymph % (Auto) 5.0 % [place] % (Auto) 0.3 % Eos % (Auto) 0.3 % Baso % (Auto) 0.1 % Neut # (Auto) 10.60 H (1.40-6.50) K/uL Lymph # (Auto) 0.57 L (1.20-3.40) K/uL [place] # (Auto) 0.03 L (0.11-0.59) K/uL Eos # (Auto) 0.03 (0.00-0.50) K/uL Baso # (Auto) 0.01 (0.00-0.20) K/uL Immature Gran # (Auto) 0.07 (0.01-0.20) K/uL Sodium (136-145) mmol/L Potassium (3.5-5.1) mmol/L Chloride (98-107) mmol/L Carbon Dioxide (21-32) mmol/L Anion Gap (3-11) BUN (6-23) mg/dl Creatinine (0.6-1.2) mg/dl Est Cr Clr Drug Dosing ml/min Est GFR ( Amer) ml/min Est GFR (Non-Af Amer) ml/min BUN/Creatinine Ratio (10-20) Glucose (70-99(Fasting)) mg/dl Lactate (0.4-2.0) mmol/L Calcium (8.6-10.3) mg/dl Total Bilirubin (0.2-1.0) mg/dl AST (13-39) U/L ALT (7-52) U/L Alkaline Phosphatase (34-104) U/L Total Protein (6.0-8.3) gm/dl Albumin (3.4-5.0) gm/dl Globulin (2.5-4.0) gm/dl Albumin/Globulin Ratio (0.9-2) Urine Color Yellow Urine Appearance Cloudy A (Clear) Urine pH 5.0 (4.5-7.5) Ur Specific Jachin 1.013 (1.000-1.030) Urine Protein 1+ H (Negative) Urine Glucose (UA) 1+ H (Negative) Urine Ketones Negative (Negative) Urine Blood 1+ H (Negative) Urine Nitrite Negative (Negative) Urine Bilirubin Negative (Negative) Urine Urobilinogen Negative (Negative) Ur Leukocyte Esterase 2+ H (Negative) Urine WBC (Auto) >30 H (0-5) /hpf Urine RBC (Auto) 0-4 (0-4) /hpf U Hyaline Cast (Auto) 1-5 (0-5) /lpf U Epithel Cells (Auto) 5-10 H (0-5) /lpf Urine Bacteria (Auto) 2+ H (Negative) SARS-CoV-2 (PCR) NEGATIVE (Negative) Influenza Type A (PCR) Negative (Neg) Influenza Type B (PCR) Negative (Neg) RSV (RT-PCR) Negative (Neg) 12/03/22 12/03/22 Range/Units 02:37 02:37 WBC (4.8-10.8) K/ul RBC (4.20-5.40) M/uL Hgb (12.0-16.0) g/dl Hct (37.0-47.0) % MCV (80.0-100.0) fL MCH (25.0-34.0) pg MCHC (32.0-36.0) g/dL RDW Std Deviation (36.4-46.3) fL RDW Coeff of Mary Carmen (11.5-14.5) % Plt Count (130-400) K/uL MPV (9.4-12.4) fL Immature Gran % (Auto) % Neut % (Auto) % Lymph % (Auto) % [place] % (Auto) % Eos % (Auto) % Baso % (Auto) % Neut # (Auto) (1.40-6.50) K/uL Lymph # (Auto) (1.20-3.40) K/uL [place] # (Auto) (0.11-0.59) K/uL Eos # (Auto) (0.00-0.50) K/uL Baso # (Auto) (0.00-0.20) K/uL Immature Gran # (Auto) (0.01-0.20) K/uL Sodium 138 (136-145) mmol/L Potassium 3.7 (3.5-5.1) mmol/L Chloride 105 (98-107) mmol/L Carbon Dioxide 21 (21-32) mmol/L Anion Gap 12 H (3-11) BUN 23 (6-23) mg/dl Creatinine 1.22 H (0.6-1.2) mg/dl Est Cr Clr Drug Dosing 36.4 ml/min Est GFR ( Amer) 48.5 ml/min Est GFR (Non-Af Amer) 41.8 ml/min BUN/Creatinine Ratio 18.9 (10-20) Glucose 227 H (70-99(Fasting)) mg/dl Lactate 3.7 H* (0.4-2.0) mmol/L Calcium 9.4 (8.6-10.3) mg/dl Total Bilirubin 0.4 (0.2-1.0) mg/dl AST 11 L (13-39) U/L ALT 10 (7-52) U/L Alkaline Phosphatase 80 (34-104) U/L Total Protein 6.5 (6.0-8.3) gm/dl Albumin 4.2 (3.4-5.0) gm/dl Globulin 2.3 L (2.5-4.0) gm/dl Albumin/Globulin Ratio 1.8 (0.9-2) Urine Color Urine Appearance (Clear) Urine pH (4.5-7.5) Ur Specific Jachin (1.000-1.030) Urine Protein (Negative) Urine Glucose (UA) (Negative) Urine Ketones (Negative) Urine Blood (Negative) Urine Nitrite (Negative) Urine Bilirubin (Negative) Urine Urobilinogen (Negative) Ur Leukocyte Esterase (Negative) Urine WBC (Auto) (0-5) /hpf Urine RBC (Auto) (0-4) /hpf U Hyaline Cast (Auto) (0-5) /lpf U Epithel Cells (Auto) (0-5) /lpf Urine Bacteria (Auto) (Negative) SARS-CoV-2 (PCR) (Negative) Influenza Type A (PCR) (Neg) Influenza Type B (PCR) (Neg) RSV (RT-PCR) (Neg) Imaging Data Attestation: I personally reviewed and interpreted this imaging study as follows: My Impression: CHEST 1 VIEW: No pulmonary consolidation. MDM Narrative Continuous residential monitor: Order was placed for continuous residential monitor. Patient was placed on the residential monitor. Patient was noted to be in normal sinus rhythm at an initial rate of 97 bpm. The patient is an 82-year-old female who presents today complaining of shaking chills. Patient is febrile on arrival. She has a leukocytosis of 11,000. Urinalysis is suggestive of a UTI. Lactate elevated at 3.7. Creatinine mildly elevated at 1.22. Patient was given ceftriaxone. She was given a total of 2 L of fluids. Sepsis fluid calculations based on ideal body weight due to BMI over 30. Patient will require inpatient care for sepsis. Case was discussed with the hospitalist, who agreed to evaluate patient for further care. Impression Sepsis, Acute UTI Critical Care Time Critical Care Time: Yes Total Critical Care Time: 35 I have personally spent greater than 35 minutes of critical care time in the direct management of this patient. This includes bedside care, interpretation of diagnostic studies, and testing, discussion with consultants, patient, and family members, and other required patient management activities. This 35 minutes is in excess of all separately billable procedures. Discharge Plan Visit Data Chief Complaint: Illness Stated Complaint: SHAKING/CHILLS/HYPERGLYCEMIC ED Provider: Pelon Ayala ED Midlevel Provider: Joslyn Osman Discharge Problem: Sepsis, Acute UTI Patient Disposition: Admitted As Inpatient Discharge Instructions Interventions: ED Discharge Assessment Last Done: 12/03/22 08:16
[2022-12-03] MEDS ORDERED: DEXTROSE 50% 50 ML SYRINGE IV PRN (08:15)
[2022-12-03] MEDS ORDERED: CARBOHYDRATES FOR HYPOGLYCEMIA PO PRN (08:15)
[2022-12-03] MEDS ORDERED: GLUCOSE 40% GEL 15 GM TUBE PO PRN (08:15)
[2022-12-03] MEDS ORDERED: GLUCAGON FOR INJ 1 MG VIAL SQ PRN (08:15)
[2022-12-03] MEDS ORDERED: GLUCOSE 10 TAB/TUBE PO PRN (08:15)
[2022-12-03] MEDS ORDERED: ONDANSETRON INJ 2 MG/ML 2 ML VIAL IV PRN (08:15)
[2022-12-03] MEDS ORDERED: NSS + 20MEQ KCL 20 MEQ/1,000 ML BAG IV SCH (08:30)
--- NOTE | 2022-12-03 08:30 | XRay Report ---
SINGLE VIEW CHEST CLINICAL HISTORY: Fever and chills FINDINGS: An AP, portable, upright chest radiograph is compared to study dated 08/22/2021. The heart i s enlarged noting atherosclerotic calcification of the thoracic aorta. The pulmonary vasculature is n ondistended congested. Chronic interstitial thickening is similar to previous. There is mild bibasila r scarring/atelectasis. The lungs and pleural spaces are otherwise clear. No pneumothorax is seen. Th e skeletal structures are osteopenic. The bony thorax is grossly intact. IMPRESSION: Cardiomegaly with no acute cardiopulmonary abnormality. ACT 112: Negative or not required by law. Electronically signed by: Augusto Blake M.D. 12/03/2022 8:28 AM
[2022-12-03] MEDS: METOPROLOL TARTRATE 25 MG TAB PO SCH ×2 (09:08→20:33)
[2022-12-03] MEDS: INSULIN ASPART PER UNIT CHARGE SC SCH ×4 (09:08→20:22)
[2022-12-03] MEDS: ASPIRIN 81 MG ECTAB PO SCH (09:57)
[2022-12-03] MEDS: CHOLECALCIFEROL 1,000 UNITS 25 MCG TAB PO SCH (09:57)
[2022-12-03] MEDS: EMPAGLIFLOZIN 10 MG TAB PO SCH (09:57)
[2022-12-03] MEDS: HEPARIN SOD 5,000 UNIT/0.5 ML VIAL SQ SCH ×2 (09:58→20:29)
[2022-12-03] MEDS: PRAVASTATIN SOD 40 MG TAB PO SCH (09:58)
[2022-12-03] MEDS: LANTUS PER UNIT CHARGE SC SCH ×2 (10:07→20:30)
[2022-12-03] MEDS: ACETAMINOPHEN 325 MG TAB PO PRN ×2 (15:59→23:33)
[2022-12-03] MEDS ORDERED: SODIUM CHLORIDE 0.9% 500 ML IV ONE ×2 (16:22→23:22)
--- NOTE | 2022-12-03 16:32 | Communication Note ---
Date of Service: December 03, 2022 please refer to the H&P dictated by Dr. Santos earlier this morning for details of presentation on admission. In brief, the patient has been having frequency urinating over the past 48 hours. Then she developed shaking chills and decided to come to the emergency room. She was noted to have mild leukocytosis, lactic acidosis and a urinalysis positive for UTI. She was diagnosed with UTI with sepsis. She was started on ceftriaxone. She was given IV fluids in the emergency room. Currently her temperature is up again, she is borderline hypotensive with shaking chills again. I have ordered of 500 cc normal saline bolus.
[2022-12-04] MEDS: cefTRIAXone SODIUM 2,000 MG in DEXTROSE 5% 50 ML IV SCH (02:05)
[2022-12-04 07:16] LABS: Albumin Level 2.9 gm/dl (3.4-5.0); BUN Creatinine Ratio 17.4 (10-20); Calcium 7.6 mg/dl (8.6-10.3); Est GFR (African American) 48.9 ml/min; Est GFR (Non-African American) 42.2 ml/min; Magnesium 1.4 mg/dl (1.7-2.4); Phosphorus 3.1 mg/dl (2.5-4.9); Potassium 3.7 mmol/L (3.5-5.1)
[2022-12-04 07:31] LABS: Estimated Average Glucose 223 mg/dl; Hemoglobin A1C 9.4 % (4.5-5.6)
[2022-12-04 07:54] LABS: Basophils # (auto) 0.02 K/uL (0.00-0.20); Basophils % (auto) 0.2 %; Eosinophils # (auto) 0.06 K/uL (0.00-0.50); Eosinophils % (auto) 0.6 %; Hematocrit (blood only) 31.1 % (37.0-47.0); Hemoglobin 10.1 g/dl (12.0-16.0); Immature Granulocytes # (auto) 0.04 K/uL (0.01-0.20); Immature Granulocytes % (auto) 0.4 %; Lymphocytes # (auto) 2.13 K/uL (1.20-3.40); Lymphocytes % (auto) 22.4 %; Mean Corpuscular Hemoglobin 28.8 pg (25.0-34.0); Mean Corpuscular Hgb Conc 32.5 g/dL (32.0-36.0); Mean Corpuscular Volume 88.6 fL (80.0-100.0); Mean Platelet Volume 10.9 fL (9.4-12.4); Monocytes % (auto) 5.3 %; Neutrophils # (auto) 6.74 K/uL (1.40-6.50); Neutrophils % (auto) 71.1 %; Platelet Count 214 K/uL (130-400); RDW Coefficient of Variation 13.5 % (11.5-14.5); RDW Standard Deviation 44.2 fL (36.4-46.3); Red Blood Count 3.51 M/uL (4.20-5.40); White Blood Count 9.49 K/ul (4.8-10.8)
[2022-12-04] MEDS ORDERED: Nursing to Pharmacy Communication SCH (08:30)
[2022-12-04] MEDS: METOPROLOL TARTRATE 25 MG TAB PO SCH ×2 (08:44→21:39)
[2022-12-04] MEDS ORDERED: SODIUM CHLORIDE 0.9% 500 ML IV ONE (08:44)
[2022-12-04] MEDS: PRAVASTATIN SOD 40 MG TAB PO SCH (08:46)
[2022-12-04] MEDS: CHOLECALCIFEROL 1,000 UNITS 25 MCG TAB PO SCH (08:46)
[2022-12-04] MEDS: ASPIRIN 81 MG ECTAB PO SCH (08:47)
[2022-12-04] MEDS: HEPARIN SOD 5,000 UNIT/0.5 ML VIAL SQ SCH ×2 (08:48→21:35)
[2022-12-04] MEDS: EMPAGLIFLOZIN 10 MG TAB PO SCH (09:16)
[2022-12-04] MEDS: INSULIN ASPART PER UNIT CHARGE SC SCH ×4 (09:16→21:35)
[2022-12-04] MEDS: LANTUS PER UNIT CHARGE SC SCH ×2 (09:31→21:35)
--- NOTE | 2022-12-04 14:29 | Hospitalist Progress Note ---
Date of Service December 04, 2022 Assessment & Plan (1) Sepsis due to gram-negative urinary tract infection: (2) Uncontrolled diabetes mellitus: (3) Hypertension: (4) Hyperlipemia: Plan gram-negative UTI with sepsis Awaiting further identification and sensitivities of gram-negative rods in the urine and blood culture Gave some more fluid today due to borderline low blood pressure Continue ceftriaxone Clinically improving Continue supportive treatment with Tylenol for pain or fever History of gram-negative UTI secondary to Klebsiella pneumoniae/recurrent UTI- Follow urine culture and sensitivity Status post 2 L normal saline in the ED Continue normal saline at 80 mils per hour x1 L Given ceftriaxone 2 g IV in the ED, and will continue daily Acetaminophen 650 mg by mouth every 6 hours as needed for mild pain or fever Diabetes mellitus- uncontrolled with A1c 9.4 continue Reduced dose of glargine from 30 units twice daily to 15 units subcu twice daily Placed on Accu-Cheks with NovoLog SSI A1c 9.4 Hypertension/renal insufficiency- Hold triamterene/HCTZ and lisinopril until blood pressure better Continue metoprolol tartrate 25 mg p.o. twice daily Admission and Anticipated Discharge Date Admission Date: December 03, 2022 Subjective patient feels better today. Overall feels stronger. Fever spikes are less frequent. Burning urination and urinary frequency have improved Review of Systems Review of Systems: All systems reviewed & are unremarkable except as noted in Subjective Physical Exam Physical Exam: general: Awake, conversant Heart: S1, S2/regular rate and rhythm, no murmur rubs or gallops Lungs: Clear to auscultation bilaterally. Normal effort Abdomen: Soft/nontender/nondistended. No hepatosplenomegaly Extremities: No clubbing/cyanosis. No edema Behavior: Appropriate, cooperative Results & Data Results & Data Vital Signs (Past 12 Hours) Vital Signs Temp Pulse Pulse Resp BP BP Pulse Ox 12/04/22 11:26 37.1 C 77 16 102/65 90 12/04/22 10:28 102/58 L 12/04/22 10:20 91/49 L 12/04/22 10:00 36.9 C 69 20 112/70 96 12/04/22 09:30 36.9 C 57 L 16 110/66 97 12/04/22 07:58 37.3 C 83 16 94/52 L 96 12/04/22 07:00 71 12/04/22 04:17 36.7 C 54 L 18 99/61 L 97 O2 Del Method 12/04/22 11:26 Room Air 12/04/22 10:28 12/04/22 10:20 12/04/22 10:00 Room Air 12/04/22 09:30 Room Air 12/04/22 07:58 Room Air 12/04/22 07:00 12/04/22 04:17 Room Air PG Care Time/CCT Total # of Minutes Spent Total Time Spent with Patient: Total time spent is greater than 50% in coordination of care (as documented) at patient's floor/unit and/or counseling patient: Coding Level of Care Code 50518 SUB INP/OBS CARE 2MIN Diagnoses Sepsis due to gram-negative urinary tract infection A41.50; N39.0 Uncontrolled diabetes mellitus Hypertension I10 Hyperlipemia E78.5
[2022-12-05] MEDS: cefTRIAXone SODIUM 2,000 MG in DEXTROSE 5% 50 ML IV SCH (02:43)
[2022-12-05] MEDS: HEPARIN SOD 5,000 UNIT/0.5 ML VIAL SQ SCH (08:26)
[2022-12-05] MEDS: METOPROLOL TARTRATE 25 MG TAB PO SCH (08:26)
[2022-12-05] MEDS: CHOLECALCIFEROL 1,000 UNITS 25 MCG TAB PO SCH (08:26)
[2022-12-05] MEDS: ASPIRIN 81 MG ECTAB PO SCH (08:27)
[2022-12-05] MEDS: PRAVASTATIN SOD 40 MG TAB PO SCH (08:27)
[2022-12-05] MEDS: EMPAGLIFLOZIN 10 MG TAB PO SCH (08:30)
[2022-12-05 08:58] LABS: Basophils # (auto) 0.03 K/uL (0.00-0.20); Basophils % (auto) 0.3 %; Eosinophils # (auto) 0.19 K/uL (0.00-0.50); Eosinophils % (auto) 2.2 %; Hematocrit (blood only) 34.1 % (37.0-47.0); Hemoglobin 10.9 g/dl (12.0-16.0); Immature Granulocytes # (auto) 0.04 K/uL (0.01-0.20); Immature Granulocytes % (auto) 0.5 %; Lymphocytes # (auto) 2.55 K/uL (1.20-3.40); Lymphocytes % (auto) 29.2 %; Mean Corpuscular Hemoglobin 28.6 pg (25.0-34.0); Mean Corpuscular Volume 89.5 fL (80.0-100.0); Mean Platelet Volume 10.4 fL (9.4-12.4); Monocytes # (auto) 0.93 K/uL (0.11-0.59); Monocytes % (auto) 10.6 %; Neutrophils % (auto) 57.2 %; Platelet Count 241 K/uL (130-400); RDW Coefficient of Variation 13.4 % (11.5-14.5); RDW Standard Deviation 44.2 fL (36.4-46.3); Red Blood Count 3.81 M/uL (4.20-5.40); White Blood Count 8.74 K/ul (4.8-10.8)
[2022-12-05] MEDS ORDERED: cephALEXin 500 MG CAP PO SCH (09:00)
[2022-12-05] MEDS: INSULIN ASPART PER UNIT CHARGE SC SCH (09:00)
[2022-12-05] MEDS: LANTUS PER UNIT CHARGE SC SCH (09:07)
[2022-12-05 10:00] LABS: Albumin Level 3.2 gm/dl (3.4-5.0); BUN Creatinine Ratio 18.9 (10-20); Calcium 8.6 mg/dl (8.6-10.3); Creatinine Clr Calc Pharmacy 41.7 ml/min; Est GFR (African American) 57.4 ml/min; Est GFR (Non-African American) 49.6 ml/min; Magnesium 1.5 mg/dl (1.7-2.4); Phosphorus 3.5 mg/dl (2.5-4.9); Potassium 3.9 mmol/L (3.5-5.1)
--- NOTE | 2022-12-05 10:15 | Discharge Summary ---
Date of Service December 05, 2022 Admission HPI Per Admitting Provider The patient is an 82-year-old female with a past medical history including umbilical hernia acute appendicitis with local peritonitis status post appendectomy 08/21, uncontrolled diabetes mellitus, hypertension, hyperlipidemia, proximal humerus fracture. The patient reports to the emergency department with shaking chills shortly before arrival to the ED, noted after a couple days of urinary frequency, urgency and dysuria. Significant laboratories: WBC 11.31, creatinine 1.22, BUN 23, glucose 227, lactic acid 3.7 Urinalysis positive for urinary tract infection Admission Exam Per Admitting Provider The patient is awake, alert and oriented 3, well developed and well nourished, normocephalic and atraumatic, lying in bed and in no acute distress. HEENT--PERRL, EOMI, mucous membranes and oropharynx mildly dry. Neck--supple. No JVD. No bruits. Thyroid normal, trachea midline, no adenopathy. Heart--normal S1 and S2. No murmurs, rubs or gallops. Lungs--clear bilaterally, no respiratory distress, no accessory muscle use. Abdomen--normal bowel sounds and soft. Nontender. Nondistended. Mild suprapubic pain Extremities--no cyanosis or clubbing. No edema. Dermatologic--normal skin turgor, normal color, no abnormal lymph nodes, no rash. Neurologic--cranial nerves II through XII grossly intact. Rheumatologic--normal range of motion. Psychiatric--normal affect. Principal Diagnosis E. coli sepsis and bacteremia secondary to acute uncomplicated E. coli UTI Discharge Exam general: Awake, conversant Heart: S1, S2/regular rate and rhythm, no murmur rubs or gallops Lungs: Clear to auscultation bilaterally. Normal effort Abdomen: Soft/nontender/nondistended. No hepatosplenomegaly Extremities: No clubbing/cyanosis. No edema Behavior: Appropriate, cooperative Discharge Data Allergies Allergy/AdvReac Type Severity Reaction Status Date / Time Penicillins Allergy Unknown CAN'T Verified 06/29/22 09:24 REMEMBER Consultations 12/03/22 03:21 ED Decision to Admit Stat Diabetes Follow up Diabetes Follow-up Needed for HgbA1c >9% Hospital Course (1) Sepsis due to gram-negative urinary tract infection: (2) Uncontrolled diabetes mellitus: (3) Hypertension: (4) Hyperlipemia: Plan E. coli sepsis and bacteremia secondary to acute uncomplicated E. coli UTI urine and blood culture grew E. coli, pansensitive Discharge on p.o. Keflex Clinically improved Blood pressure stabilized leukocytosis normalized Lactic acidosis resolved Diabetes mellitus- uncontrolled with A1c 9.4 continue Reduced dose of glargine from 30 units twice daily to 15 units subcu twice daily Placed on Accu-Cheks with NovoLog SSI patient does not willing to continue Jardiance Advised her to speak to her PCP about the discontinuation of Jardiance. Hypertension/ CKD stage III- resume triamterene/HCTZ and lisinopril since blood pressure better Continue metoprolol tartrate 25 mg p.o. twice daily Total Time Total Time Spent Total Time Spent (In Minutes): 35 Discharge Plan Discharge Items Patient Disposition: Home - Self-Care Reason For Visit: SEPSIS DUE TO UTI Discharge Diagnosis: Ecoli bacteremia and sepsis due to acute uncomplicated Ecoli UTI Condition on Discharge: Fair Activity: Resume your previous activity Non-emergency contact: Primary Care Provider Call non-emergency contact if: you have any medication questions and your symptoms worsen Follow-up/Referrals: Jarvis Harding CRNP [Primary Care Provider] - 12/15/22 8:20 am Diet: Carb Consistent or DM2 Addtl Attending Provider Instructions: Advised to follow-up with PCP in 1 week Advised to discuss with your PCP if you wish to discontinue taking Jardiance Pending Studies at Discharge: No Stand-Alone Forms: My [facility] [employer] [facility] Medications and DC Order Prescriptions: New cephalexin 500 mg Capsule 500 mg PO BID 7 Days Qty: 14 0RF Continued metoprolol tartrate 25 mg tablet 25 mg PO BID Qty: 180 3RF (DME) pen needle, diabetic 32 gauge x 1/6" needle See Rx Instructions .Route Qty: 100 6RF Rx Instructions: patient using two per day (DME) OneTouch Ultra Test Strip See Rx Instructions .Route Qty: 200 3RF Rx Instructions: Patient to test blood sugars TID DX:E11 pravastatin 40 mg tablet 40 mg PO QAM Qty: 90 3RF cholecalciferol (vitamin D3) 100 mcg (4,000 unit) tablet 100 mcg PO DAILY Qty: 30 0RF triamterene-hydrochlorothiazid 37.5-25 mg tablet 1 tab PO QAM Qty: 90 1RF lisinopril 10 mg tablet 10 mg PO QAM Qty: 90 1RF insulin glargine [Basaglar KwikPen U-100 Insulin] 100 unit/mL (3 mL) insulin pen 30 unit SUBCUT BID Qty: 45 1RF aspirin [Tate Low Dose Aspirin] 81 mg Tablet,Delayed Release (Dr/Ec) 81 mg PO QAM Discharge Orders: Discharge Order (Routine); Ordered 12/05/22 Ordered By: Geovany Rodríguez/Other Patient Handouts: Managing Type 2 Diabetes, UTIs Understanding, Special Foot Care for Diabetes Admission Data Admit Date/Time: 12/03/22 03:42 Attending Provider: Geovany Toth Admit Provider: Miky Santos Primary Care Provider: Jarvis Harding Other Providers: Miky Santos Other Interventions: Discharge Summary Assessment (RN) Last Done: 12/05/22 10:51 Coding Level of Care Code 79642 INP/OBS DISCH >30 MIN Diagnoses Sepsis due to gram-negative urinary tract infection A41.50; N39.0 Uncontrolled diabetes mellitus Hypertension I10 Hyperlipemia E78.5
== END 2022-12-05 12:32 | disposition home or self-care (01) | DRG 872 ==
LOC: ED 01:16 → EDINP 03:42 → SUATTDRO 03:42 → 2N 08:16